=== PATIENT | female | born 1995 | race Caucasian/White ===

== ENCOUNTER 2019-10-02 09:49 | Outpatient (CLI) | payer OTHER, SELFPAY ==
[2015-11-09 03:06] VITALS: BMI 21.2
[2019-10-02] MEDS: Lactated Ringers 1,000 ML 999 ML IV (10:15)
[2019-10-02 10:25] VITALS: BMI 23.6
[2019-10-02] MEDS: Ondansetron 4 MG/2 ML Vial IM (10:39)
[2019-10-02 11:21] LABS: Albumin, Serum 3.6 g/dL (3.2-5.0); BUN 8 mg/dL (7-18); BUN/Creat Ratio 11.9 RATIO (10-20); Creatinine, Serum 0.68 mg/dL (0.55-1.02); EST Glomerular Filtration Rate 113 mL/min (>60); Est Glom Filt Rate - Afr Amer 137 mL/min (>60); Globulin 3.4 g/dL (2.2-4.2); Glucose 85 mg/dL (74-106)
[2019-10-02 11:22] LABS: ALB/GLOB Ratio 1.1 RATIO (0.9-2.4); AST(SGOT) 17 U/L (15-37); Alanine Aminotransfer ALT/SGPT 18 U/L (13-56); Alkaline Phosphatase 61 U/L (45-117); Anion Gap 6 (5-15); Calcium,Total 8.7 mg/dL (8.5-10.1); Chloride 107 mmol/L (98-107); Potassium 3.8 mmol/L (3.5-5.1); Sodium Level 138 mmol/L (136-145)
--- NOTE | 2019-10-02 11:47 | OB.TRI.PN ---
Progress Notes Date of Service: 10/02/19 Progress Note: 23 year old female presents to triage for nausea and vomiting. Nausea started 1.5 weeks ago. Yesterday had emesis x 6 and today x3. Has been unable to keep fluids or food down for 24 hrs. Tried zofran last week for nausea but was nervous to take it and did not in the last three days when nausea peaked. She is approximately 8 wks by LMP but earlier gestational age and more likely 6-7 based on early visit in office. Has dating US in 2 weeks. Denies any vaginal bleeding or pelvic pain. Denies any headache, chest pain, shortness of breath, or other concerns. O: Laboratory Last Values Sodium 138 mmol/L (136-145) 10/02/19 10:58 Potassium 3.8 mmol/L (3.5-5.1) 10/02/19 10:58 Chloride 107 mmol/L (98-107) 10/02/19 10:58 Carbon Dioxide 25.0 mmol/L (21.0-32.0) 10/02/19 10:58 Anion Gap 6 (5-15) 10/02/19 10:58 BUN 8 mg/dL (7-18) 10/02/19 10:58 Creatinine 0.68 mg/dL (0.55-1.02) 10/02/19 10:58 Estim Creat Clear Calc Cancelled 10/02/19 10:15 Est GFR (MDRD) Af Amer 137 mL/min (>60) 10/02/19 10:58 Est GFR (MDRD) Non-Af 113 mL/min (>60) 10/02/19 10:58 BUN/Creatinine Ratio 11.9 RATIO (10-20) 10/02/19 10:58 Glucose 85 mg/dL (74-106) 10/02/19 10:58 Calcium 8.7 mg/dL (8.5-10.1) 10/02/19 10:58 Total Bilirubin 0.90 mg/dL (0.20-1.00) 10/02/19 10:58 AST 17 U/L (15-37) 10/02/19 10:58 ALT 18 U/L (13-56) 10/02/19 10:58 Alkaline Phosphatase 61 U/L (45-117) 10/02/19 10:58 Total Protein 7.0 g/dL (6.4-8.2) 10/02/19 10:58 Albumin 3.6 g/dL (3.2-5.0) 10/02/19 10:58 Globulin 3.4 g/dL (2.2-4.2) 10/02/19 10:58 Albumin/Globulin Ratio 1.1 RATIO (0.9-2.4) 10/02/19 10:58 Gen: Alert and oriented Heart: RRR, no murmur Lungs: CTA bilaterally Abd: soft and non tender A: Nausea and vomiting in P: 1) 1 Liter LR IV 2) CMP, labs normal 3) 4mg IV zofran. Has PO zofran at home. reviewed risks, benefits, and how to take. Questions answered. Requesting Diclegis, will send Rx but reviewed how to take Vitamin B 6 and Unisom if unable to get coverage. 4) Reviewed BRATY diet, increased protein, and snacks every 2-3 hours 5) Follow up in office as scheduled and reviewed when to call. Laboratory Studies: Laboratory Tests 10/02/19 10/02/19 Range/Units 10:58 10:15 Sodium 138 Cancelled Potassium 3.8 Cancelled Chloride 107 Cancelled Carbon Dioxide 25.0 Cancelled Anion Gap 6 Cancelled BUN 8 Cancelled Creatinine 0.68 Cancelled Estim Creat Clear Calc Cancelled Est GFR (MDRD) Af Amer 137 Cancelled Est GFR (MDRD) Non-Af 113 Cancelled BUN/Creatinine Ratio 11.9 Cancelled Glucose 85 Cancelled Calcium 8.7 Cancelled Total Bilirubin 0.90 Cancelled AST 17 Cancelled ALT 18 Cancelled Alkaline Phosphatase 61 Cancelled Total Protein 7.0 Cancelled Albumin 3.6 Cancelled Globulin 3.4 Cancelled Albumin/Globulin Ratio 1.1 Cancelled
[2019-10-02 11:54] VITALS: BP 102/59; PULSE 70
== END 2019-10-02 12:15 | disposition home or self-care (01) ==
LOC: WPOUT 09:57 → OBT 09:58
PROVIDERS: PCP Student in an Organized Health Care Education/Training Program; Referring Provider Advanced Practice Midwife; Visit Provider Advanced Practice Midwife
DX: O26.891 Other specified pregnancy related conditions, first trimester (principal); R11.2 Nausea with vomiting, unspecified; Z3A.08 8 weeks gestation of pregnancy
CPT/HCPCS: 96360; 96361; 96372; 36415; 80053; 99218; J7120; G0378; J2405

== ENCOUNTER → 2021-10-15 | Outpatient (CLI) | payer OTHER, SELFPAY ==
[2021-10-14 14:14] LABS: Amphetamine Urine VISTA NEGATIVE (<1000 ng/mL); Barbiturate Urine VISTA NEGATIVE (< 200 ng/mL); Benzodiazepine Urine VISTA NEGATIVE (< 200 ng/mL); Cocaine Urine VISTA NEGATIVE (< 300 ng/mL); Ecstacy Urine VISTA NEGATIVE (< 500 ng/mL); Methadone Urine VISTA NEGATIVE (< 300 ng/mL); PCP Urine VISTA NEGATIVE (< 25 ng/mL); THC Urine VISTA NEGATIVE (< 50 ng/mL); Vista UDS pH Range 5
[2021-10-18 01:07] LABS: Chlamydia By Nucleic Acid AMP Negative (Negative)
[2021-10-18 13:27] LABS: Gonococcus By Nucleic Acid AMP Negative (Negative)
== END | disposition home or self-care (01) ==
PROVIDERS: Visit Provider Obstetrics & Gynecology
DX: Z34.80 Encounter for supervision of other normal pregnancy, unspecified trimester (principal)
CPT/HCPCS: 80307; 87086; 87088; 87491; 87591

== ENCOUNTER → 2021-10-19 | Outpatient (CLI) | payer OTHER, SELFPAY ==
[2021-10-19 12:03] LABS: Absolute Lymphocyte Count 1.32 X10^3/uL (0.83-4.51); Absolute Neutrophil Count 4.9 X10^3/uL (2.0-7.7); Basophil# 0.03 X10^3/uL; Basophil% 0.4 % (0-1); Eosinophil# 0.08 X10^3/uL; Eosinophils% 1.2 % (0-5); Hematocrit 39.7 % (37-47); Hemoglobin 13.7 g/dL (12.0-15.0); Lymphocyte # 1.32 X10^3/ul (0.83-4.51); Lymphocyte % 19.4 % (19-41); Mean Corp Hgb Conc 34.5 g/dL (32-36); Mean Corpuscular Hgb 31.6 pg (27.0-32.0); Mean Corpuscular Volume 91.5 fL (81-99); Mean Platelet Vol. 9.2 fl (6.2-12.0); Monocyte# 0.41 X10^3/uL; NRBC Flagged by Analyzer 0 % (0-5); Neutrophil # 4.93 X10^3/uL (2.7-7.7); Neutrophil % 72.6 % (47-70); Platelet Count 265 K/mm3 (150-450); RBC Distribution Width CV 12.8 % (11.6-14.6); RBC Distribution Width SD 42.5 fl (35.1-43.9); Red Blood Count 4.34 M/mm3 (4.2-5.4); White Blood Count 6.8 K/mm3 (4.4-11.0)
[2021-10-19 13:14] LABS: HIV - WCH Non-Reactive (Nonreactive); Hepatitis B Surface Antigen Non-Reactive (Nonreactive); Hepatitis C Antibody Non-Reactive (Nonreactive); Rubella IgG Reactive (Nonreactive); Syphilis Antibodies Non-reactive
== END | disposition home or self-care (01) ==
PROVIDERS: Referring Provider Obstetrics & Gynecology; Visit Provider Obstetrics & Gynecology
DX: Z34.80 Encounter for supervision of other normal pregnancy, unspecified trimester (principal)
CPT/HCPCS: 36415; 85025; 86703; 86762; 86780; 86803; 86850; 86900; 86901; 87340

== ENCOUNTER → 2021-12-14 | Outpatient (CLI) | payer OTHER, SELFPAY ==
[2022-02-03 10:44] LABS: NATERA MAILED SPECIMEN
== END | disposition home or self-care (01) ==
DX: O35.1XX0 Maternal care for (suspected) chromosomal abnormality in fetus, not applicable or unspecified (principal)
CPT/HCPCS: 36415

== ENCOUNTER → 2022-01-29 | Outpatient (CLI) | payer OTHER, SELFPAY ==
[2022-01-29 09:35] LABS: Absolute Neutrophil Count 4.4 X10^3/uL (2.0-7.7); Basophil# 0.02 X10^3/uL; Basophil% 0.3 % (0-1); Eosinophil# 0.06 X10^3/uL; Glucose Challenge Gest 1H 50g 133 mg/dL (70-140); Hematocrit 34.1 % (37-47); Hemoglobin 11.4 g/dL (12.0-15.0); Lymphocyte % 16.9 % (19-41); Mean Corp Hgb Conc 33.4 g/dL (32-36); Mean Corpuscular Hgb 33.3 pg (27.0-32.0); Mean Corpuscular Volume 99.7 fL (81-99); Mean Platelet Vol. 9.2 fl (6.2-12.0); Monocyte# 0.39 X10^3/uL; Monocyte% 6.6 % (0-10); NRBC Flagged by Analyzer 0 % (0-5); Neutrophil % 74.7 % (47-70); Platelet Count 189 K/mm3 (150-450); RBC Distribution Width SD 50.5 fl (35.1-43.9); Red Blood Count 3.42 M/mm3 (4.2-5.4); White Blood Count 5.9 K/mm3 (4.4-11.0)
== END | disposition home or self-care (01) ==
LOC: LAB 08:44
PROVIDERS: Referring Provider Obstetrics & Gynecology; Visit Provider Obstetrics & Gynecology
DX: Z13.1 Encounter for screening for diabetes mellitus (principal)
CPT/HCPCS: 36415; 82950; 85025

== ENCOUNTER → 2022-02-10 | Outpatient (CLI) | payer OTHER, SELFPAY ==
--- NOTE | 2022-02-10 12:47 | US_ITS ---
STUDY: SECOND AND THIRD TRIMESTER OBSTETRICAL ULTRASOUND - LIMITED REASON FOR EXAM: Female, 26 years old . growth. LMP: 07/21/2021. PRIOR ULTRASOUND: None. TECHNIQUE: Transabdominal TECHNICAL QUALITY: Adequate. FINDINGS: There is a single intrauterine fetus. The fetus is in a breech presentation. There is demonstrated cardiac activity with a heart rate of 147 bpm. There is a normal amniotic fluid volume. The largest amniotic fluid pocket measures 8.34 cm. The amniotic fluid index (MARIA LUISA) is 20.6 cm. The placenta is anterior in location and is not low lying. There are Grade 0 placental changes. The cervix measures 3.92 cm in length. BIOMETRY: BPD: 7.38 cm: 29 weeks, 4 days HC: 28 cm: 30 weeks, 1 days AC: 25.35 cm: 29 weeks, 4 days FL: 5.45 cm: 28 weeks, 6 days Age by LMP: 29 weeks, 1 days. AGUS by LMP: 04/27/2022. age by current US: 29 weeks, 5 days. AGUS by current US: 04/23/2022. Estimated weight: 1385 grams, +/- 208 grams, 46 percentile. US/OB Limited With Biometrics IMPRESSION: Single live intrauterine gestation with a mean gestational age of 29 weeks and 5 days. Electronically Signed: Cory Whitehead MD at 14:45 EDT ,
== END | disposition home or self-care (01) ==
LOC: US 12:45
PROVIDERS: Referring Provider Obstetrics & Gynecology; Visit Provider Obstetrics & Gynecology
DX: O35.1XX0 Maternal care for (suspected) chromosomal abnormality in fetus, not applicable or unspecified (principal); Z3A.29 29 weeks gestation of pregnancy
CPT/HCPCS: 76816

== ENCOUNTER → 2022-04-01 | Outpatient (CLI) | payer OTHER, SELFPAY | END | disposition home or self-care (01) | PROVIDERS: Visit Provider Obstetrics & Gynecology | DX: Z34.90 Encounter for supervision of normal pregnancy, unspecified, unspecified trimester (principal) | CPT/HCPCS: 87081 ==

== ENCOUNTER 2022-05-02 10:30 | Outpatient (CLI) | payer OTHER, SELFPAY ==
[2022-05-02 10:54] VITALS: BMI 30.1
[2022-05-02 10:58] VITALS: TEMP 36.7
[2022-05-02 10:59] VITALS: BP 112/70; PULSE 98
[2022-05-02 11:00] VITALS: PULSE 94; O2SAT 97
[2022-05-02 11:23] LABS: ROM Internal Control Test YES-OK TO RESULT pt. (Internal QC); ROM Patient Test Negative (Negative)
--- NOTE | 2022-05-02 21:10 | OB.TRI.HP_ITS ---
HPI - General HPI Narrative VÍCTOR MELGAR, is a 26 F G3, P1 at 40+5 presenting to labor and delivery with contractions and questionable leaking of fluid. Maternal Data Information AGUS Calculator Estimated Delivery Date Method Current WG Current Estimate 04/27/22 LMP (Certain) 40w 5d PFSH PFSH Medical History Family history of breast cancer in mother Family history of ovarian carcinoma Home Medications vit no.95-ferrous fumarate 28 mg-folic acid 800 mcg tablet 1 ea PO DAILY 10/02/19 [History Last Taken 05/01/22 21:00] doxylamine succinate 25 mg tablet (Unisom (doxylamine)) 25 mg PO QHS PRN Sleep 03/18/22 [History Last Taken 05/01/22 21:00] Allergy/AdvReac Type Severity Reaction Status Date / Time No Known Allergies Allergy Verified 05/02/22 10:56 Family History Mother Breast cancer age 29 and again age 35. Neg BRCA testing Grandmother Cancer maternal: ovarian Sister Endometriosis PCOS (polycystic ovarian syndrome) Social History adopted: No household members: spouse and children number of children: 1 current occupational status: unemployed current occupation: [employer] pets and animals: Yes pets and animals: dog(s) Smoking Status: Never smoker alcohol intake: current details: social substance use type: does not use do you feel safe at home: Yes additional social history: Spouse Chapito History 3 Elective abortions Hx Para 1 Spontaneous abortions 1 Hx # Term Pregnancies Ectopic pregnancies Hx # Pregnancies Multiple births # of living children 1 Past Pregnancies Del. Date Name GA/Weeks Outcome Route Bth Weight Infant Gen Labor Lgth Anesthesia Del Locatn Provider FOB Unknown 05/18/20 [facility] live - full term 7# 2oz Fe male 26 hr epidural [place] [facility] Unknown SAB 07/2021 Delivery Date: Last Updated by: Stephani Garcia NP, AIR QUALITY MANAGER-C minor TIA at 36 wk. No anticoagulants. Symptoms resolved. Visit Details Expected Delivery Route/Plan Labor Preferences labor support person: chapito labor intervention preferences: pain management options preferred: epidural cut cord/dad catch: yes : yes PP control planned: [] discussed possible routes of delivery and associated risks: [] special requests: [] Plans Covid status: discussed Flu vaccine: discussed Tdap vaccine: given Rhogam: na LARC form signed: declined movement and labor precautions reviewed. Problem list reviewed and updated with the most current plan of care details and appropriate orders placed. Relevant counseling for the gestational age provided. Continue routine care and follow up unless otherwise noted in visit notes/problem list details OB Flowsheet Initial Weight: 130 lb Date -?-?-?-?-?-?-?-?-?-?-?-?- EGA Weight BP Urine Prot -?-?-?-?-?-?-?-?-?-?-?-?- Glucose FHR FuHt Pres Dilation -?-?-?-?-?-?-?-?-?-?-?-?- Effaced St Visit Note 10/14/21 -?-?-?-?-?-?-?-?-?-?-?-?- 12w 1d 130 lb 4 oz (+4 oz) 100/80 -?-?-?-?-?-?-?-?-?-?-?-?- 160 -?-?-?-?-?-?-?-?-?-?-?-?- JV- CRL consiste nt with LMP 11/12/21 -?-?-?-?-?-?-?-?-?-?-?-?- 16w 2d 133 lb (+3 lb) 114/64 Negative -?-?-?-?-?-?-?-?-?-?-?-?- Negative 150 -?-?-?-?-?-?-?-?-?-?-?-?- SM- no vb crampi ng still having nausea, hvaing upper eyelid rash 12/07/21 -?-?-?-?-?-?-?-?-?-?-?-?- 19w 6d 137 lb 8 oz (+7 lb 8 oz) 102/68 -?-?-?-?-?-?-?-?-?-?-?-?- 150 -?-?-?-?-?-?-?-?-?-?-?-?- Sm- no vb lof go od fm no regular ctx 01/04/22 -?-?-?-?-?-?-?-?-?-?-?-?- 23w 6d 143 lb (+13 lb) 122/68 -?-?-?-?-?-?-?-?-?-?-?-?- 150 -?-?-?-?-?-?-?-?-?-?-?-?- SM- no vb crampi ng doing well 02/04/22 -?-?-?-?-?-?-?-?-?-?-?-?- 28w 2d 150 lb 6 oz (+20 lb 6 oz) 110/60 -?-?-?-?-?-?-?-?-?-?-?-?- 150 30 -?-?-?-?-?-?-?-?-?-?-?-?- JV- due for grow th scan but can not afford mfm. will order with [facility]. pt is taking baby asa for possible h/o TIA, however mfm believes this was just a complex migraine. She states that the follow up thrombophilia panel will cost her $4000 so she will not be doing this. JV- due for growth scan but can not afford mfm. will order with [facility]. pt is taking baby asa for possible h/o TIA, however mfm believes this was just a complex migraine. She states that the follow up thrombophilia panel will cost her $4000 so she will not be doing this. Glucola was normal. lar signed today. 02/18/22 -?-?-?-?-?-?-?-?-?-?-?-?- 30w 2d 153 lb (+23 lb) 94/62 Negative -?-?-?-?-?-?-?-?-?-?-?-?- Negative 150 31 -?-?-?-?-?-?-?-?-?-?-?-?- SM- no vb lof go od fm no regular ctx 03/02/22 -?-?-?-?-?-?-?-?-?-?-?-?- 32w 0d 165 lb 6 oz (+35 lb 6 oz) 118/75 -?-?-?-?-?-?--?-?-?-?-?-?- 154 33 -?-?-?-?-?-?-?-?-?-?-?-?- JV- c/o vaginal varicosities. consider rpt maria luisa after 34 weeks due to measurement of 20 on last scan 03/18/22 -?-?-?-?-?-?-?-?-?-?-?-?- 34w 2d 163 lb (+33 lb) 118/69 Negative -?-?-?-?-?-?-?-?-?-?-?-?- Negative 145 35 -?-?-?-?--?-?-?-?-?-?-?-?- JV- fundal heigh t appropriate. no need for MARIA LUISA today. 04/01/22 -?-?-?-?-?-?-?-?-?-?-?-?- 36w 2d 165 lb (+35 lb) 112/78 -?-?-?-?-?-?-?-?-?-?-?-?- 135 36 Cephalic 1 -?-?-?-?-?-?-?-?-?-?-?-?- SM- no vb lof go od fm no regualr ctx 04/08/22 -?-?-?-?-?-?-?-?-?-?-?-?- 37w 2d 169 lb 2 oz (+39 lb 2 oz) 113/69 -?-?-?-?-?-?-?-?-?-?-?-?- 141 37 Cephalic 1 -?-?-?-?-?-?-?-?-?-?-?-?- 50 -3 JV- no lof , vaginal bleeding or dec fm. labor precautions discussed. 04/15/22 -?-?-?-?-?-?-?-?-?-?-?-?- 38w 2d 167 lb (+37 lb) 110/75 Negative -?-?-?-?-?-?-?-?-?-?-?-?- Negative 145 39 Cephalic 1 .5 -?-?-?-?-?-?-?-?-?-?-?-?- 60 -2 Sm- no vb lof good fm n oregular ctx 04/22/22 -?-?-?-?-?-?-?-?-?-?-?-?- 39w 2d 169 lb 6 oz (+39 lb 6 oz) 121/69 Negative -?-?-?-?-?-?-?-?-?-?-?-?- Negative 140 37 Cephalic 2 -?-?-?-?-?-?-?-?-?-?-?-?- 60 -2 JV- no lof , vaginal bleeding, or dec fm. labor precautions discussed. NST FHR Rate Baby A Baseline: 140 Variability:: Moderate Accelerations:: 15 x 15 Decelerations:: None NST Reactive:: Yes FHR Category:: Category I Uterine Activity:: q9-15 minutes Assessment & Plan (1) Supervision of high-risk : COMMENT: PRR AGUS:04/27/22 boy PC:Kae. Spouse:Chapito (2) : QUALIFIERS: Weeks of gestation: 40 weeks Qualified Code(s): Z3A.40 - 40 weeks gestation of COMMENT: GBS Negative, low risk NIPT, declined afp and carrier screen. A natomy US showed thickened NF 7.44mm. F/u growth US every 4-6 weeks with MFM 01/18/22, 02/10/22 nl growth US PLAN: Plan Patient presents for triage evaluation secondary to ctx and LOF FHT: + Moderate variability reactive no decelerations category I tracing [place]: irreg Contractions Assessment and plan: Reactive NST, no change in cervical exam. reassuring maternal and status patient discharged to home to follow-up for IOL scheduled. See problem list details for additional plan information. Charges/Coding Multi Select Codes Urinary/Genital Urinary/Genital CPT Codes: 75323-25 non-stress test Interp
--- NOTE | 2022-05-02 21:10 | OB.TRI.NOTE ---
HPI - General HPI Narrative VÍCTOR MELGAR, is a 26 F G3, P1 at 40+5 presenting to labor and delivery with contractions and questionable leaking of fluid. Maternal Data Information AGUS Calculator Estimated Delivery Date Method Current WG Current Estimate 04/27/22 LMP (Certain) 40w 5d PFSH PFSH Medical History Family history of breast cancer in mother Family history of ovarian carcinoma Home Medications vit no.95-ferrous fumarate 28 mg-folic acid 800 mcg tablet 1 ea PO DAILY 10/02/19 [History Last Taken 05/01/22 21:00] doxylamine succinate 25 mg tablet (Unisom (doxylamine)) 25 mg PO QHS PRN Sleep 03/18/22 [History Last Taken 05/01/22 21:00] Allergy/AdvReac Type Severity Reaction Status Date / Time No Known Allergies Allergy Verified 05/02/22 10:56 Family History Mother Breast cancer age 29 and again age 35. Neg BRCA testing Grandmother Cancer maternal: ovarian Sister Endometriosis PCOS (polycystic ovarian syndrome) Social History adopted: No household members: spouse and children number of children: 1 current occupational status: unemployed current occupation: [employer] [address] [employer] [employer] pets and animals: Yes pets and animals: dog(s) Smoking Status: Never smoker alcohol intake: current details: social substance use type: does not use do you feel safe at home: Yes additional social history: Spouse Chapito History 3 Elective abortions Hx Para 1 Spontaneous abortions 1 Hx # Term Pregnancies Ectopic pregnancies Hx # Pregnancies Multiple births # of living children 1 Past Pregnancies Del. 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 No anticoagulants. Symptoms resolved. Visit Details Expected Delivery Route/Plan Labor Preferences labor support person: chapito labor intervention preferences: pain management options preferred: epidural cut cord/dad catch: yes : yes PP control planned: [] discussed possible routes of delivery and associated risks: [] special requests: [] Plans Covid status: discussed Flu vaccine: discussed Tdap vaccine: given Rhogam: na LARC form signed: declined movement and labor precautions reviewed. Problem list reviewed and updated with the most current plan of care details and appropriate orders placed. Relevant counseling for the gestational age provided. Continue routine care and follow up unless otherwise noted in visit notes/problem list details OB Flowsheet Initial Weight: 130 lb Date <del>?</del> EGA Weight BP Urine Prot <del>?</del> Glucose FHR FuHt Pres Dilation <del>?</del> Effaced St Visit Note 10/14/21 <del>?</del> 12w 1d 130 lb 4 oz (+4 oz) 100/80 <del>?</del> 160 <del>?</del> JV- CRL consistent with LMP 11/12/21 <del>?</del> 16w 2d 133 lb (+3 lb) 114/64 Negative <del>?</del> Negative 150 <del>?</del> SM- no vb cramping still having nausea, hvaing upper eyelid rash 12/07/21 <del>?</del> 19w 6d 137 lb 8 oz (+7 lb 8 oz) 102/68 <del>?</del> 150 <del>?</del> Sm- no vb lof good fm no regular ctx 01/04/22 <del>?</del> 23w 6d 143 lb (+13 lb) 122/68 <del>?</del> 150 <del>?</del> SM- no vb cramping doing well 02/04/22 <del>?</del> 28w 2d 150 lb 6 oz (+20 lb 6 oz) 110/60 <del>?</del> 150 30 <del>?</del> JV- due for growth scan but can not afford mfm. will order with [facility]. pt is taking baby asa for possible h/o TIA, however mfm believes this was just a complex migraine. She states that the follow up thrombophilia panel will cost her $4000 so she will not be doing this. JV- due for growth scan but can not afford mfm. will order with [facility]. pt is taking baby asa for possible h/o TIA, however mfm believes this was just a complex migraine. She states that the follow up thrombophilia panel will cost her $4000 so she will not be doing this. Glucola was normal. larc signed today. 02/18/22 <del>?</del> 30w 2d 153 lb (+23 lb) 94/62 Negative <del>?</del> Negative 150 31 <del>?</del> SM- no vb lof good fm no regular ctx 03/02/22 <del>?</del> 32w 0d 165 lb 6 oz (+35 lb 6 oz) 118/75 <del>?</del> 154 33 <del>?</del> JV- c/o vaginal varicosities. consider rpt maria luisa after 34 weeks due to measurement of 20 on last scan 03/18/22 <del>?</del> 34w 2d 163 lb (+33 lb) 118/69 Negative <del>?</del> Negative 145 35 <del>?</del> JV- fundal height appropriate. no need for MARIA LUISA today. 04/01/22 <del>?</del> 36w 2d 165 lb (+35 lb) 112/78 <del>?</del> 135 36 Cephalic 1 <del>?</del> SM- no vb lof good fm no regualr ctx 04/08/22 <del>?</del> 37w 2d 169 lb 2 oz (+39 lb 2 oz) 113/69 <del>?</del> 141 37 Cephalic 1 <del>?</del> 50 -3 JV- no lof, vaginal bleeding or dec fm. labor precautions discussed. 04/15/22 <del>?</del> 38w 2d 167 lb (+37 lb) 110/75 Negative <del>?</del> Negative 145 39 Cephalic 1.5 <del>?</del> 60 -2 Sm- no vb lof good fm n oregular ctx 04/22/22 <del>?</del> 39w 2d 169 lb 6 oz (+39 lb 6 oz) 121/69 Negative <del>?</del> Negative 140 37 Cephalic 2 <del>?</del> 60 -2 JV- no lof, vaginal bleeding, or dec fm. labor precautions discussed. NST FHR Rate Baby A Baseline: 140 Variability:: Moderate Accelerations:: 15 x 15 Decelerations:: None NST Reactive:: Yes FHR Category:: Category I Uterine Activity:: q9-15 minutes Assessment & Plan (1) Supervision of high-risk : COMMENT: PRR AGUS:04/27/22 boy PC:Kae. Spouse:Chapito (2) : QUALIFIERS: Weeks of gestation: 40 weeks Qualified Code(s): Z3A.40 - 40 weeks gestation of COMMENT: GBS Negative, low risk NIPT, declined afp and carrier screen. Anatomy US showed thickened NF 7.44mm. F/u growth US every 4-6 weeks with MFM 01/18/22, 02/10/22 nl growth US PLAN: Plan Patient presents for triage evaluation secondary to ctx and LOF FHT: + Moderate variability reactive no decelerations category I tracing Kenneth: irreg Contractions Assessment and plan: Reactive NST, no change in cervical exam. reassuring maternal and status patient discharged to home to follow-up for IOL scheduled. See problem list details for additional plan information. Charges/Coding Multi Select Codes Urinary/Genital Urinary/Genital CPT Codes: 83526-83 non-stress test Interp
== END 2022-05-02 11:39 | disposition home or self-care (01) ==
LOC: WPOUT 10:38 → WP 10:46
PROVIDERS: Referring Provider Registered Nurse; Visit Provider Registered Nurse
DX: O47.1 False labor at or after 37 completed weeks of gestation (principal); O48.0 Post-term pregnancy; Z3A.40 40 weeks gestation of pregnancy; O09.10 Supervision of pregnancy with history of ectopic pregnancy, unspecified trimester
CPT/HCPCS: 59025; 59050; 84112; 99218; G0378

== ENCOUNTER 2022-05-03 07:05 | Inpatient (IN) | payer OTHER, SELFPAY ==
[2022-05-03] VITALS (57 sets, daily range): BP systolic 89–130; BP diastolic 52–90; PULSE 72–107; TEMP 36–36.6; O2SAT 87–100; BMI 30.1
[2022-05-03] MEDS: Lactated Ringers 1,000 ML 50 ML IV (07:40)
[2022-05-03 08:00] LABS: Absolute Lymphocyte Count 1.18 X10^3/uL (0.83-4.51); Absolute Neutrophil Count 5.6 X10^3/uL (2.0-7.7); Basophil# 0.03 X10^3/uL; Basophil% 0.4 % (0-1); Eosinophil# 0.07 X10^3/uL; Hematocrit 38.3 % (37-47); Lymphocyte # 1.18 X10^3/ul (0.83-4.51); Lymphocyte % 16.2 % (19-41); Mean Corp Hgb Conc 33.9 g/dL (32-36); Mean Corpuscular Hgb 32.9 pg (27.0-32.0); Mean Platelet Vol. 10.6 fl (6.2-12.0); Monocyte# 0.43 X10^3/uL; Monocyte% 5.9 % (0-10); NRBC Flagged by Analyzer 0 % (0-5); Neutrophil # 5.56 X10^3/uL (2.7-7.7); Neutrophil % 76.2 % (47-70); Platelet Count 142 K/mm3 (150-450); RBC Distribution Width CV 12.9 % (11.6-14.6); RBC Distribution Width SD 45.6 fl (35.1-43.9); Red Blood Count 3.95 M/mm3 (4.2-5.4); White Blood Count 7.3 K/mm3 (4.4-11.0)
[2022-05-03] MEDS: Oxytocin 15 Units/NS 250ml 15 UNITS/250 ML IV.SOLN 2 UNITS IV (08:37)
--- NOTE | 2022-05-03 10:14 | HP.PCM.OB_ITS ---
HPI - General General Date of Admission: 05/03/22 HPI Narrative VÍCTOR MELGAR, is a 26 F who presents for IOL secondary to postdates. she has had irregular ctx no vb lof admits good fm. Maternal Data Information AGUS Calculator Estimated Delivery Date Method Current WG Current Estimate 04/27/22 LMP (Certain) 40w 6d PFSH PFSH Medical History (Updated 05/03/22 @ 10:[address] Ania Ibarra MD) Family history of breast cancer in mother Family history of ovarian carcinoma Labial varicosities Home Medications vit no.95-ferrous fumarate 28 mg-folic acid 800 mcg tablet 1 ea PO DAILY 10/02/19 [History Last Taken 05/02/22 21:00] doxylamine succinate 25 mg tablet (Unisom (doxylamine)) 25 mg PO QHS PRN Sleep 03/18/22 [History Last Taken 05/02/22 21:00] Allergy/AdvReac Type Severity Reaction Status Date / Time No Known Allergies Allergy Verified 05/02/22 10:56 Family History Mother Breast cancer age 29 and again age 35. Neg BRCA testing Grandmother Cancer maternal: ovarian Sister Endometriosis PCOS (polycystic ovarian syndrome) Surgical History (Updated 05/03/22 @ 08:59 by Elke Singh) History of oral surgery Social History adopted: No household members: spouse and children number of children: 1 current occupational status: unemployed current occupation: [employer] pets and animals: Yes pets and animals: dog(s) Smoking Status: Never smoker alcohol intake: current details: social substance use type: does not use do you feel safe at home: Yes additional social history: Spouse Chapito History 3 Elective abortions Hx Para 1 Spontaneous abortions 1 Hx # Term Pregnancies Ectopic pregnancies Hx # Pregnancies Multiple births # of living children 1 Past Pregnancies Del. Date Name GA/Weeks Outcome Route Bth Weight Gen Labor Lgth Anesthesia Del Locatn Provider FOB Unknown 05/18/20 [facility] live - full term 7# 2oz Fe male 26 hr epidural [place] [facility] Unknown SAB 07/2021 Delivery Date: Last Updated by: Stephani Garcia NP, [facility]-C minor TIA at 36 wk. No anticoagulants. Symptoms resolved. Visit Details Expected Delivery Route/Plan Labor Preferences labor support person: chapito labor intervention preferences: pain management options preferred: epidural cut cord/dad catch: yes : yes PP control planned: [] discussed possible routes of delivery and associated risks: [] special requests: [] Plans Covid status: discussed Flu vaccine: discussed Tdap vaccine: given Rhogam: na LARC form signed: declined movement and labor precautions reviewed. Problem list reviewed and updated with the most current plan of care details and appropriate orders placed. Relevant counseling for the gestational age provided. Continue routine care and follow up unless otherwise noted in visit notes/problem list details OB Flowsheet Initial Weight: 130 lb Date -?-?-?-?-?-?-?-?-?-?-?-?- EGA Weight BP Urine Prot -?-?-?-?-?-?-?-?-?-?-?-?- Glucose FHR FuHt Pres Dilation -?-?-?-?-?-?-?-?-?-?-?-?- Effaced St Visit Note 10/14/21 -?-?-?-?-?-?-?-?-?-?-?-?- 12w 1d 130 lb 4 oz (+4 oz) 100/80 -?-?-?-?-?-?-?-?-?-?-?-?- 160 -?-?-?-?-?-?-?-?-?-?-?-?- JV- CRL consiste nt with LMP 11/12/21 -?-?-?-?-?-?-?-?-?-?-?-?- 16w 2d 133 lb (+3 lb) 114/64 Negative -?-?-?-?-?-?-?-?-?-?-?-?- Negative 150 -?-?-?-?-?-?-?-?-?-?--?-?- SM- no vb crampi ng still having nausea, hvaing upper eyelid rash 12/07/21 -?-?-?-?-?-?-?-?-?-?-?-?- 19w 6d 137 lb 8 oz (+7 lb 8 oz) 102/68 -?-?-?-?-?-?-?-?-?-?-?-?- 150 -?-?-?-?-?-?-?-?-?-?-?-?- Sm- no vb lof go od fm no regular ctx 01/04/22 -?-?-?-?-?-?-?-?-?-?-?-?- 23w 6d 143 lb (+13 lb) 122/68 -?-?-?-?-?-?-?-?-?-?-?-?- 150 -?-?-?-?-?-?-?-?-?-?-?-?- SM- no vb crampi ng doing well 02/04/22 -?-?-?-?-?-?-?-?-?-?-?-?- 28w 2d 150 lb 6 oz (+20 lb 6 oz) 110/60 -?-?-?-?-?-?-?-?-?-?-?-?- 150 30 -?-?-?-?-?-?-?-?-?-?-?-?- JV- due for grow th scan but can not afford mfm. will order with [facility]. pt is taking baby asa for possible h/o TIA, however mfm believes this was just a complex migraine. She states that the follow up thrombophilia panel will cost her $4000 so she will not be doing this. JV- due for growth scan but can not afford mfm. will order with [facility]. pt is taking baby asa for possible h/o TIA, however mfm believes this was just a complex migraine. She states that the follow up thrombophilia panel will cost her $4000 so she will not be doing this. Glucola was normal. larc signed today. 02/18/22 -?-?-?-?-?-?-?-?-?-?-?-?- 30w 2d 153 lb (+23 lb) 94/62 Negative -?-?-?-?-?-?-?-?-?-?-?-?- Negative 150 31 -?-?-?-?-?-?-?-?-?-?-?-?- SM- no vb lof go od fm no regular ctx 03/02/22 -?-?-?-?-?-?-?-?-?-?-?-?- 32w 0d 165 lb 6 oz (+35 lb 6 oz) 118/75 -?-?-?-?-?-?-?-?-?-?-?-?- 154 33 -?-?-?-?-?-?-?-?-?-?-?-?- JV- c/o vaginal varicosities. consider rpt maria luisa after 34 weeks due to measurement of 20 on last scan 03/18/22 -?-?-?-?-?-?-?-?-?-?-?-?- 34w 2d 163 lb (+33 lb) 118/69 Negative -?-?-?-?-?-?-?-?-?-?-?-?- Negative 145 35 -?-?-?-?-?-?-?-?-?-?-?-?- JV- fundal heigh t appropriate. no need for MARIA LUISA today. 04/01/22 -?-?-?-?-?-?-?-?-?-?-?-?- 36w 2d 165 lb (+35 lb) 112/78 -?-?-?-?-?-?-?-?-?-?-?-?- 135 36 Cephalic 1 -?-?-?-?-?-?-?-?-?-?-?-?- SM- no vb lof go od fm no regualr ctx 04/08/22 -?-?-?-?-?-?-?-?-?-?-?-?- 37w 2d 169 lb 2 oz (+39 lb 2 oz) 113/69 -?-?-?-?-?-?-?-?-?-?-?-?- 141 37 Cephalic 1 -?-?-?-?-?-?-?-?-?-?-?-?- 50 -3 JV- no lof , vaginal bleeding or dec fm. labor precautions discussed. 04/15/22 -?-?-?-?-?-?-?-?-?-?-?-?- 38w 2d 167 lb (+37 lb) 110/75 Negative -?-?-?-?-?-?-?-?-?-?-?-?- Negative 145 39 Cephalic 1 .5 -?-?-?-?-?-?-?-?-?-?-?-?- 60 -2 Sm- no vb lof good fm n oregular ctx 04/22/22 -?-?-?-?-?-?-?-?-?-?-?-?- 39w 2d 169 lb 6 oz (+39 lb 6 oz) 121/69 Negative -?-?-?-?-?-?-?-?-?-?-?-?- Negative 140 37 Cephalic 2 -?-?-?-?-?-?-?-?-?-?-?-?- 60 -2 JV- no lof , vaginal bleeding, or dec fm. labor precautions discussed. 05/03/22 -?-?-?-?-?-?-?-?-?--?-?-?- 40w 6d 170 lb (+40 lb) 113/75 100/63 111/73 -?-?-?-?-?-?-?-?-?-?-?-?- -?-?-?-?-?-?-?-?-?-?-?-?- NST FHR Rate Baby A Baseline: 130 Variability:: Moderate Accelerations:: 15 x 15 Decelerations:: None NST Reactive:: Yes FHR Category:: Category I Uterine Activity:: irregular ROS Constitutional Constitutional: Reports systems reviewed and no addt'l complaints, except as documented Eyes Eyes: Denies change in vision ENT HEENT: Reports systems reviewed and no addt'l complaints, except as documented; Denies headache(s) Cardiovascular Cardiovascular: Reports systems reviewed and no addt'l complaints, except as documented; Denies chest pain or dyspnea Respiratory/Chest Respiratory/Chest: Reports systems reviewed and no addt'l complaints, except as documented Gastrointestinal Gastrointestinal: Reports systems reviewed and no addt'l complaints, except as documented; Denies abdominal pain Genitourinary Genitourinary: Reports systems reviewed and no addt'l complaints, except as documented, contractions Details: present (irregular) and movement Details: present; Denies dysuria or genital lesions Musculoskeletal Musculoskeletal: Reports systems reviewed and no addt'l complaints, except as documented Neurologic Neurologic: Reports systems reviewed and no addt'l complaints, except as documented Endocrine Endocrinology: Reports systems reviewed and no addt'l complaints, except as documented Vital Signs Vital Signs Vital Signs: 05/03/22 07:46 05/03/22 07:46 05/03/22 07:46 Temperature Temperature Source Pulse Rate 107 H Blood Pressure 113/75 BP Systolic 113 BP Diastolic 75 Pulse Ox 97 05/03/22 07:46 05/03/22 07:46 05/03/22 09:01 Temperature 97.3 F L Temperature Source Temporal Pulse Rate Blood Pressure 100/63 BP Systolic 100 BP Diastolic 63 Pulse Ox 05/03/22 09:01 05/03/22 09:00 05/03/22 09:00 Temperature 96.8 F L Temperature Source Temporal Pulse Rate 90 Blood Pressure BP Systolic BP Diastolic Pulse Ox 05/03/22 07:46 05/03/22 07:46 05/03/22 09:59 Temperature 97.3 F L Temperature Source Temporal Temporal Pulse Rate Blood Pressure BP Systolic BP Diastolic Pulse Ox 05/03/22 09:59 05/03/22 09:59 05/03/22 09:59 Temperature Temperature Source Pulse Rate 83 Blood Pressure 111/73 BP Systolic 111 BP Diastolic 73 Pulse Ox 99 05/03/22 09:59 Temperature 97.4 F L Temperature Source Pulse Rate Blood Pressure BP Systolic BP Diastolic Pulse Ox Weight Weight: 170 lb Body Mass Index (BMI) 30.1 Physical Exam Const alert, oriented x3, no apparent distress and healthy appearing HEENT normocephalic and moist oral mucous membranes Head and Scalp: atraumatic Neck full ROM, no lymphadenopathy, supple and thyroid normal General: trachea midline Lymph Lymphatic: no lymphadenopathy noted Chest inspection of chest normal Resp normal respiratory effort Cardio regular rate GI normal to inspection, nondistended, normoactive bowel sounds, soft to palpation and non-tender Inspection: gravid external exam normal Manual OB Exam: estimated gestational size appropriate, presentation cephalic, dilated, effaced and station Extremity normal to inspection General Extremity: Negative for edema Skin no rashes or lesions noted Neuro no focal motor deficits and deep tendon reflexes 2+ bilaterally Motor Exam: strength 5/5 throughout and clonus absent Psych mental status grossly normal Labs Labs Labs: Blood Type A POSITIVE Antibody Screen NEGATIVE Hct 38.3 % (37-47) Hgb 13.0 g/dL (12.0-15.0) Obstetrics US Syphilis Total Ab Non-reactive Rubella IgG Antibody Reactive (Nonreactive) Hep Bs Antigen Non-Reactive (Nonreactive) Chlamydia DNA (MANDI) Negative (Negative) Neisseria gonorrhoeae DNA (MANDI) Negative (Negative) HIV 1&2 Antibody Non-Reactive (Nonreactive) Glucose 1 Hr 50 gm 133 mg/dL (70-140) Assessment & Plan (1) Decreased movements in third trimester: COMMENT: nst today, if persistent recommend IOL (2) Nuchal fold thickening determined by ultrasound: COMMENT: told by M didn't need echo, nl anatomy. (3) Supervision of high-risk : COMMENT: PRR AGUS:04/27/22 boy PC:Kae. Spouse:Chapito (4) : QUALIFIERS: Weeks of gestation: 40 weeks Qualified Code(s): Z3A.40 - 40 weeks gestation of COMMENT: GBS Negative, low risk NIPT, declined afp and carrier screen. Anatomy US showed thickened NF 7.44mm. F/u growth US every 4-6 weeks with MFM 01/18/22, 02/10/22 nl growth US (5) Encounter for induction of labor: PLAN: Plan Patient presents IOL, plan management for with fb pitocin/AROM. Pain management: plans epidural. GBS negative. Management of any complications: none I have reviewed the [facility] and made any clinically relevant updates.
[2022-05-03] MEDS: LACTATED RINGERS 500 ML 999 ML IV ×3 (11:03→18:02)
[2022-05-03] MEDS: fentaNYL-bupivacaine (epidural) 100 ML BAG EPIDURAL ×3 (12:30→22:38)
--- NOTE | 2022-05-03 13:16 | PN_ITS ---
Progress Note pt is comfortable with epidural current tracing: FHT: 120's-130's Moderate variability reactive no decelerations category I tracing [place]: q 2-3 min Contractions cx: 3/70/-1, membranes ruptured and scant clear fluid returned. IUPC placed to determine uterine contraction strength. A/P: post dates IOL. continue pitocin. membranes ruptured with clear fluid return
[2022-05-03] MEDS: Lactated Ringers 1,000 ML 200 ML IV ×2 (16:25→22:38)
[2022-05-03] MEDS: Ondansetron 4 MG/2 ML Vial IV (20:48)
[2022-05-04] VITALS (36 sets, daily range): BP systolic 102–117; BP diastolic 60–84; PULSE 69–94; RESP 15–16; TEMP 36.1–36.4; O2SAT 97–99
[2022-05-04] MEDS: Methylergonovine 0.2 MG/ML Ampul IM (01:23)
--- NOTE | 2022-05-04 01:35 | OP.PCM_ITS ---
Assessment & Plan (1) Decreased movements in third trimester: COMMENT: nst today, if persistent recommend IOL (2) Nuchal fold thickening determined by ultrasound: COMMENT: told by MFM didn't need echo, nl anatomy. (3) Supervision of high-risk : COMMENT: PRR AGUS:04/27/22 boy PC:Kae. Spouse:Hero (4) : QUALIFIERS: Weeks of gestation: 40 weeks Qualified Code(s): Z3A.40 - 40 weeks gestation of COMMENT: GBS Negative, low risk NIPT, declined afp and carrier screen. Anatomy US showed thickened NF 7.44mm. F/u growth US every 4-6 weeks with MFM 01/18/22, 02/10/22 nl growth US (5) Encounter for induction of labor: (6) Vaginal delivery: COMMENT: SM 41 IOL postdates boy Maternal Data Information AGUS Calculator Estimated Delivery Date Method Current WG Current Estimate 04/27/22 LMP (Certain) 41w 0d Vaginal Delivery Operative Information Date of Procedure: 05/04/22 Pre-Operative Diagnosis: iol postdates Post-Operative Diagnosis: same Surgery / Procedure Performed: Spontaneous Vaginal Delivery Type of Anesthesia: Epidural Special Medications: none Estimated Blood Loss: 300 Fluids Replaced: crystalloid Findings Description of Procedure: Patient began pushing and delivered the head in the RAVEN presentation. The head was delivered atraumatically . The anterior and posterior shoulders delivered without complication followed by the rest of the and the infant was placed on the maternal abdomen. Delayed cord clamping was employed for approximately 60 seconds. Cord was clamped and cut and gentle traction was applied to the cord and the placenta delivered spontaneously immediately following it was noted to be intact with three-vessel cord. The perineum and vagina were inspected and noted to have no laceration. EBL was 300. Patient and tolerated delivery well. Presentation: RAVEN Amniotic Membrane Rupture Type: Spontaneous Amniotic Fluid Description: Clear Placental Delivery Description: Spontaneous Placenta Disposition: [facility] Cord Vessel Description: 3 Vessels Cord Entanglement: None Infant A Gender: Male Delayed Cord Clamping: Yes Post Vaginal Delivery Medications Given After Delivery: IV Pitocin Episiotomy Description: None Laceration: None Complication Complications: None Procedures Urinary/Genital [id number]: [id number] Vaginal Delivery [facility]
--- NOTE | 2022-05-04 01:42 | DCINST_ITS ---
Discharge Instructions Diet Discharge Diet: No restrictions Activity Discharge Activity: Return to Normal Activity, May Drive, May Shower and May Take a Tub Bath (in 4 weeks) May resume sexual activity in: 6-8 weeks (after seen by OB provider) Weight Bearing Status: Full weight bearing Lifting Restrictions: none Dressing / Incision Call your doctor if you observe: Fever of 101 or Higher, Inability to urinate, Using more than 1 pad per hour (for more than 2 hours in a row or more), Shortness of breath, Dizziness, Chest pain and - (headache not controlled with tylenol, change in vision) Follow Up Care When: in 6 weeks for visit, call the office to make the appointment. If you had elevated blood pressures call the office to be seen within 1 week. Test Results: Test results from this visit will be discussed in further detail at your follow- up appointment, if applicable. Discharge Plan Admission Admit Date/Time: 05/03/22 07:05 Attending Provider: Ania Ibarra Primary Care Provider: Care Physician,Regina Primary Discharge Orders/Prescriptions Prescriptions: No Action Unisom (doxylamine) 25 mg tablet 25 mg PO QHS PRN (Reason: Sleep) PNV cmb#95-ferrous fumarate-FA 1 EACH tablet 1 ea PO DAILY Referrals / Follow Up: Care Physician,No Primary [Primary Care Provider] - Disposition Disposition (needs filled in before D/C Order can be placed): Home, Self Care
[2022-05-04] MEDS: Naproxen 500 MG Tablet PO ×2 (05:39→16:52)
--- NOTE | 2022-05-04 08:53 | PCM.PN.OB ---
Objective Data Objective Data Vital Signs: Vital Signs Temp Pulse Resp BP Pulse Ox O2 Del Method 97.1 F L 78 16 114/72 97 Room Air 05/04/22 07:46 05/04/22 07:46 05/04/22 07:46 05/04/22 07:46 05/04/22 07:46 05/04/22 07:46 Oxygen Delivery Method Room Air Weight: 170 lb Body Mass Index (BMI) 30.1 Intake & Output: Intake and Output for Last 24 Hours 05/02/22 05/03/22 05/04/22 23:59 23:59 23:59 Intake Total 3975.27 / 3975.27 703.06 / 703.06 Output Total 1200 / 1200 700 / 700 Balance 2775.27 / 2775.27 3.06 / 3.06 Lab / Micro Data Result Diagrams: 05/03/22 07:40 Labs: Laboratory Results - last 24 hr 05/03/22 07:40: Blood Type A POSITIVE, Antibody Screen NEGATIVE Physical Exam Narrative uterus firm deviated to left, 1above U. minimal vaginal bleeding, no clots. just voided 350ml. Const alert and oriented x3 Resp normal respiratory effort, normal air movement and no retractions Effort and Inspection: able to speak in complete sentences GI soft to palpation Inspection: edema findings bilateral Palpation: soft Extremity normal to inspection and full ROM Assessment & Plan (1) Vaginal delivery: COMMENT: CORY 41 IOL postdates boy PLAN: Plan obtain bladder scan if residual will straight cath continue to monitor strict I&O
--- NOTE | 2022-05-04 09:00 | NURSING ---
Patient was bladder scanned - 200 mL residual.
--- NOTE | 2022-05-04 09:14 | NURSING ---
Patient was bladder scanned - 200 mL residual after urinating 350 mL out. Patient then urinated 200 mL after bladder scan. Uterus still displaced to L. Firm.
--- NOTE | 2022-05-04 14:00 | NURSING ---
report given to ashwin jarvis rn who will assume care of this patient at this time
[2022-05-05 02:15] VITALS: BP 109/78; PULSE 95; RESP 15; TEMP 36.1; O2SAT 97
[2022-05-05] MEDS: Naproxen 500 MG Tablet PO (04:59)
[2022-05-05 08:43] VITALS: BP 103/69; PULSE 71; RESP 17; TEMP 35.9
--- NOTE | 2022-05-05 09:54 | PCM.DC.SUM ---
Providers Date of Admission: 05/03/22 Primary Care Physician: No Primary Care Phys Reason For Visit: VAG Diagnosis Discharge Diagnosis (1) Vaginal delivery: Status: Inactive Code(s): O80 - Encounter for full-term uncomplicated delivery Medications at Discharge Home Medications vit no.95-ferrous fumarate 28 mg-folic acid 800 mcg tablet 1 ea PO DAILY 10/02/19 doxylamine succinate 25 mg tablet (Unisom (doxylamine)) 25 mg PO QHS PRN Sleep 03/18/22 Hospital Course Operations None Procedures - (vaginal delivery ) Summary of Care Provided Minutes Spent on Discharge: 10 Hospital Course: The patient was admitted 05/03/22 for induction of labor. She progressed to complete and delivered a viable male on 05/04/22 just after midnight. She recovered well on PPD#1 and was discharged to home in stable condition. Physical Exam Const alert, oriented x3 and no apparent distress General Appearance: cooperative and comfortable Resp normal respiratory effort Cardio regular rate GI normal to inspection, nondistended, normoactive bowel sounds GI Narrative: uterus is firm below umbilicus Palpation: soft Back/Spine no CVA tenderness and thoraco-lumbar ROM normal Extremity normal to inspection, no clubbing, cyanosis or edema, no calf tenderness and no pedal edema Psych mental status grossly normal, thought process normal, cooperative, affect normal, speech normal, activity/motor behavior normal, denies homicidal ideation and denies suicidal ideation Weight / BMI Weight Weight: 170 lb Body Mass Index (BMI) 30.1 ABG / Lab / Microbiology Data Result Diagrams: 05/03/22 07:40 D/C Instructions Discharge Diet: No restrictions May resume sexual activity in: 6-8 weeks (after seen by OB provider) Weight Bearing Status: Full weight bearing Call your doctor if you observe: Fever of 101 or Higher, Inability to urinate, Using more than 1 pad per hour (for more than 2 hours in a row or more), Shortness of breath, Dizziness, Chest pain and - (headache not controlled with tylenol, change in vision) When: in 6 weeks for visit, call the office to make the appointment. If you had elevated blood pressures call the office to be seen within 1 week. Meaningful Use Info Meaningful Use Diagnoses (Choose all that apply): None applicable Discharge Plan Admission Admit Date/Time: 05/03/22 07:05 Attending Provider: Ania Ibarra Primary Care Provider: Care Physician,No Primary Discharge Orders/Prescriptions Prescriptions: No Action Unisom (doxylamine) 25 mg tablet 25 mg PO QHS PRN (Reason: Sleep) PNV cmb#95-ferrous fumarate-FA 1 EACH tablet 1 ea PO DAILY Referrals / Follow Up: Care Physician,No Primary [Primary Care Provider] - Disposition Disposition (needs filled in before D/C Order can be placed): Home, Self Care
== END 2022-05-05 11:10 | disposition home or self-care (01) | DRG 807 ==
PROVIDERS: Admitting Provider Obstetrics & Gynecology; Visit Provider Obstetrics & Gynecology
DX: O48.0 Post-term pregnancy (principal); Z37.0 Single live birth; O36.8130 Decreased fetal movements, third trimester, not applicable or unspecified; Z3A.40 40 weeks gestation of pregnancy
CPT/HCPCS: 59025; 59050; 85025; 86850; 86900; 86901; 99218; J7120; G0378; J2405

== ENCOUNTER → 2022-06-15 | Outpatient (CLI) | payer OTHER, SELFPAY ==
[2022-06-20 20:30] LABS: HPV Reflexed? NOT INDICATED
== END | disposition home or self-care (01) ==
LOC: LABSPEC 12:48
PROVIDERS: Referring Provider Obstetrics & Gynecology; Visit Provider Obstetrics & Gynecology
DX: Z12.4 Encounter for screening for malignant neoplasm of cervix (principal)
CPT/HCPCS: 88175; G0145

== ENCOUNTER → 2022-10-31 | Outpatient (CLI) | payer OTHER, SELFPAY ==
[2022-10-31 12:19] LABS: Absolute Lymphocyte Count 1.59 X10^3/uL (0.83-4.51); Absolute Neutrophil Count 3.4 X10^3/uL (2.0-7.7); Basophil# 0.04 X10^3/uL; Basophil% 0.7 % (0-1); Eosinophils% 1.8 % (0-5); Hemoglobin 15.1 g/dL (12.0-15.0); Lymphocyte # 1.59 X10^3/ul (0.83-4.51); Lymphocyte % 28.3 % (19-41); Mean Corp Hgb Conc 32.8 g/dL (32-36); Mean Corpuscular Hgb 30.9 pg (27.0-32.0); Mean Corpuscular Volume 94.3 fL (81-99); Mean Platelet Vol. 10.1 fl (6.2-12.0); Monocyte# 0.47 X10^3/uL; Monocyte% 8.4 % (0-10); NRBC Flagged by Analyzer 0 % (0-5); Neutrophil # 3.41 X10^3/uL (2.7-7.7); Neutrophil % 60.6 % (47-70); Platelet Count 317 K/mm3 (150-450); RBC Distribution Width CV 11.9 % (11.6-14.6); Red Blood Count 4.88 M/mm3 (4.2-5.4); White Blood Count 5.6 K/mm3 (4.4-11.0)
[2022-10-31 12:30] LABS: ALB/GLOB Ratio 1.1 RATIO (0.9-2.4); AST(SGOT) 28 U/L (15-37); Alanine Aminotransfer ALT/SGPT 25 U/L (13-56); Albumin, Serum 3.9 g/dL (3.2-5.0); Alkaline Phosphatase 77 U/L (45-117); Anion Gap 5 (5-15); BUN 17 mg/dL (7-18); BUN/Creat Ratio 24.1 RATIO (10-20); Calcium,Total 8.8 mg/dL (8.5-10.1); Chloride 108 mmol/L (98-107); Cholesterol 162 mg/dL (200); EST Glomerular Filtration Rate 105 mL/min (>60); Est Glom Filt Rate - Afr Amer 127 mL/min (>60); Globulin 3.6 g/dL (2.2-4.2); Glucose 92 mg/dL (74-106); High Density Lipoprotein 63 mg/dL; Potassium 4.1 mmol/L (3.5-5.1); Protein, Total 7.5 g/dL (6.4-8.2); Sodium Level 140 mmol/L (136-145); Triglycerides 71 mg/dL; Very Low Density Lipoprotein 14 mg/dL (5-40)
== END | disposition home or self-care (01) ==
LOC: BIMLAB 08:51
PROVIDERS: PCP Internal Medicine; Referring Provider Internal Medicine; Visit Provider Internal Medicine
DX: Z00.00 Encounter for general adult medical examination without abnormal findings (principal)
CPT/HCPCS: 36415; 80053; 80061; 85025

== ENCOUNTER → 2023-12-12 | Outpatient (CLI) | payer OTHER, SELFPAY ==
[2023-12-15 21:07] LABS: Chlamydia By Nucleic Acid AMP Negative (Negative); Gonococcus By Nucleic Acid AMP Negative (Negative)
== END | disposition home or self-care (01) ==
LOC: LABSPEC 15:44
PROVIDERS: PCP Internal Medicine; Referring Provider Advanced Practice Midwife; Visit Provider Advanced Practice Midwife
DX: O09.90 Supervision of high risk pregnancy, unspecified, unspecified trimester (principal)
CPT/HCPCS: 87086; 87088; 87491; 87591

== ENCOUNTER → 2024-01-23 | Outpatient (CLI) | payer OTHER, SELFPAY ==
[2024-01-23 15:47] LABS: Absolute Lymphocyte Count 1.39 X10^3/uL (0.83-4.51); Absolute Neutrophil Count 4.7 X10^3/uL (2.0-7.7); Basophil# 0.03 X10^3/uL; Basophil% 0.5 % (0-1); Eosinophil# 0.08 X10^3/uL; Eosinophils% 1.2 % (0-5); Hematocrit 35.5 % (37-47); Hemoglobin 12.2 g/dL (12.0-15.0); Lymphocyte # 1.39 X10^3/ul (0.83-4.51); Mean Corp Hgb Conc 34.4 g/dL (32-36); Mean Corpuscular Hgb 31.1 pg (27.0-32.0); Mean Corpuscular Volume 90.6 fL (81-99); Mean Platelet Vol. 9.6 fl (6.2-12.0); Monocyte# 0.41 X10^3/uL; Monocyte% 6.2 % (0-10); NRBC Flagged by Analyzer 0 % (0-5); Neutrophil % 70.8 % (47-70); Platelet Count 294 K/mm3 (150-450); RBC Distribution Width CV 13.5 % (11.6-14.6); RBC Distribution Width SD 44.3 fl (35.1-43.9); Red Blood Count 3.92 M/mm3 (4.2-5.4); White Blood Count 6.6 K/mm3 (4.4-11.0)
[2024-01-23 16:13] LABS: ALB/GLOB Ratio 0.8 RATIO (0.9-2.4); AST(SGOT) 18 U/L (15-37); Alanine Aminotransfer ALT/SGPT 13 U/L (13-56); Alkaline Phosphatase 56 U/L (45-117); Anion Gap 8 (5-15); BUN 11 mg/dL (7-18); Calcium,Total 8.5 mg/dL (8.5-10.1); Chloride 105 mmol/L (98-107); Creatinine, Serum 0.52 mg/dL (0.55-1.02); EST Glomerular Filtration Rate 146 mL/min (>60); Est Glom Filt Rate - Afr Amer 177 mL/min (>60); Globulin 3.9 g/dL (2.2-4.2); Glucose 104 mg/dL (74-106); Potassium 3.9 mmol/L (3.5-5.1); Protein, Total 6.9 g/dL (6.4-8.2); Sodium Level 136 mmol/L (136-145)
[2024-01-23 16:52] LABS: HIV - WCH Non-Reactive (Nonreactive); Hepatitis B Surface Antigen Non-Reactive (Nonreactive); Hepatitis C Antibody Non-Reactive (Nonreactive); Rubella IgG Reactive (Nonreactive); Syphilis Antibodies Non-reactive
== END | disposition home or self-care (01) ==
LOC: LABSPEC 14:43
PROVIDERS: PCP Internal Medicine; Referring Provider Advanced Practice Midwife; Visit Provider Advanced Practice Midwife
DX: Z34.81 Encounter for supervision of other normal pregnancy, first trimester (principal)
CPT/HCPCS: 80053; 85025; 86703; 86762; 86780; 86803; 86850; 86900; 86901; 87340

== ENCOUNTER → 2024-04-29 | Outpatient (CLI) | payer OTHER, SELFPAY ==
[2024-04-29 10:16] LABS: Absolute Lymphocyte Count 0.92 X10^3/uL (0.83-4.51); Absolute Neutrophil Count 5.3 X10^3/uL (2.0-7.7); Basophil# 0.02 X10^3/uL; Basophil% 0.3 % (0-1); Eosinophil# 0.06 X10^3/uL; Eosinophils% 0.9 % (0-5); Hematocrit 36.6 % (37-47); Hemoglobin 12.3 g/dL (12.0-15.0); Lymphocyte # 0.92 X10^3/ul (0.83-4.51); Lymphocyte % 13.6 % (19-41); Mean Corp Hgb Conc 33.6 g/dL (32-36); Mean Corpuscular Hgb 32.7 pg (27.0-32.0); Mean Corpuscular Volume 97.3 fL (81-99); Mean Platelet Vol. 9.2 fl (6.2-12.0); Monocyte# 0.38 X10^3/uL; Monocyte% 5.6 % (0-10); NRBC Flagged by Analyzer 0 % (0-5); Neutrophil # 5.34 X10^3/uL (2.7-7.7); Neutrophil % 79.3 % (47-70); Platelet Count 204 K/mm3 (150-450); RBC Distribution Width CV 13.8 % (11.6-14.6); RBC Distribution Width SD 48.3 fl (35.1-43.9); Red Blood Count 3.76 M/mm3 (4.2-5.4); White Blood Count 6.7 K/mm3 (4.4-11.0)
[2024-04-29 10:22] LABS: Glucose Challenge Gest 1H 50g 136 mg/dL (70-140)
[2024-04-29 10:56] LABS: HIV - WCH Non-Reactive (Nonreactive); Syphilis Antibodies Non-reactive
== END | disposition home or self-care (01) ==
LOC: BWCLAB 08:16
PROVIDERS: PCP Internal Medicine; Referring Provider Obstetrics & Gynecology; Visit Provider Obstetrics & Gynecology
DX: O24.419 Gestational diabetes mellitus in pregnancy, unspecified control (principal); Z3A.00 Weeks of gestation of pregnancy not specified
CPT/HCPCS: 36415; 82950; 85025; 86703; 86780

== ENCOUNTER → 2024-05-01 | Outpatient (CLI) | payer OTHER, SELFPAY ==
[2024-05-01 10:38] LABS: Bedside Glucose 81 mg/dL (74-106)
[2024-05-01 11:00] LABS: Glucose GTT-Gestation. Fasting 81 mg/dL (<105)
[2024-05-01 11:47] LABS: Glucose GTT-Gestational 1 Hr 147 mg/dL (<190)
[2024-05-01 12:53] LABS: Glucose GTT-Gestational 2 Hr 176 mg/dL (<165)
[2024-05-01 14:10] LABS: Glucose GTT-Gestational 3 Hr 141 L (<145)
== END | disposition home or self-care (01) ==
LOC: LAB 09:57
PROVIDERS: PCP Internal Medicine; Referring Provider Nurse Practitioner Women's Health; Visit Provider Nurse Practitioner Women's Health
DX: O99.810 Abnormal glucose complicating pregnancy (principal); Z3A.00 Weeks of gestation of pregnancy not specified
CPT/HCPCS: 36415; 82951; 82952; 82962

== ENCOUNTER → 2024-06-28 | Outpatient (CLI) | payer OTHER, SELFPAY | END | disposition home or self-care (01) | LOC: LABSPEC 11:15 | PROVIDERS: PCP Internal Medicine; Referring Provider Registered Nurse; Visit Provider Registered Nurse | DX: Z34.93 Encounter for supervision of normal pregnancy, unspecified, third trimester (principal) | CPT/HCPCS: 87081 ==

== ENCOUNTER → 2024-06-28 | Outpatient (CLI) | payer OTHER, SELFPAY ==
--- NOTE | 2024-06-28 08:39 | US_ITS ---
STUDY: SECOND AND THIRD TRIMESTER OBSTETRICAL ULTRASOUND REASON FOR EXAM: Female, 28 years old GDM LMP: October 16, 2023. TECHNIQUE: Transabdominal TECHNICAL QUALITY: Adequate. PRIOR ULTRASOUND: None. FINDINGS: There is a single intrauterine fetus. The fetus is in a cephalic presentation. There is demonstrated cardiac activity with a heart rate of 150 bpm. There is a normal amniotic fluid volume. The largest amniotic fluid pocket measures 4.4 cm. The amniotic fluid index (MARIA LUISA) is 15.4 cm. The placenta is posterior in location and is not low lying. There are Grade 2 placental changes. The adnexal regions are not visualized. BIOMETRY: BPD: 8.6 cm: 34 weeks, 6 days: 16.2% HC: 32.6 cm: 37 weeks, 0 days: 31% AC: 33.6 cm: 37 weeks, 4 days: 85% FL: 7 cm: 36 weeks, 0 days: 34% CI: 74% FL/BPD: 81% FL/HC: 22% FL/AC: 21% HC/AC: 1 age by current US: 36 weeks, 3 days. AGUS by current US: July 23, 2024. Estimated weight: 3032 grams, +/- 455 grams, 60 %. Age by LMP: 36 weeks, 4 days. AGUS by LMP: July 22, 2024. US/OB Limited With Biometrics IMPRESSION: Single live intrauterine gestation with mean gestational age of 36 weeks and 3 days. Electronically Signed: Cory Whitehead MD at 15:20 EST ,
== END | disposition home or self-care (01) ==
LOC: US 08:38
PROVIDERS: PCP Internal Medicine; Referring Provider Advanced Practice Midwife; Visit Provider Advanced Practice Midwife
DX: O24.419 Gestational diabetes mellitus in pregnancy, unspecified control (principal); O09.93 Supervision of high risk pregnancy, unspecified, third trimester; Z3A.32 32 weeks gestation of pregnancy
CPT/HCPCS: 76816

== ENCOUNTER 2024-07-17 07:09 | Inpatient (IN) | payer OTHER, SELFPAY ==
[2024-07-17] VITALS (66 sets, daily range): BP systolic 92–126; BP diastolic 55–82; PULSE 71–119; RESP 14–18; TEMP 36.3–37.2; O2SAT 87–100; BMI 29.9
[2024-07-17] MEDS: Lactated Ringers 1,000 ML 50 ML IV ×2 (07:38→10:19)
[2024-07-17 07:54] LABS: Absolute Lymphocyte Count 1.04 X10^3/uL (0.83-4.51); Absolute Neutrophil Count 5.6 X10^3/uL (2.0-7.7); Basophil# 0.02 X10^3/uL; Basophil% 0.3 % (0-1); Eosinophil# 0.07 X10^3/uL; Hematocrit 34.5 % (37-47); Hemoglobin 11.6 g/dL (12.0-15.0); Lymphocyte # 1.04 X10^3/ul (0.83-4.51); Lymphocyte % 14.4 % (19-41); Mean Corp Hgb Conc 33.6 g/dL (32-36); Mean Corpuscular Hgb 31.8 pg (27.0-32.0); Mean Corpuscular Volume 94.5 fL (81-99); Mean Platelet Vol. 8.9 fl (6.2-12.0); Monocyte# 0.44 X10^3/uL; Monocyte% 6.1 % (0-10); NRBC Flagged by Analyzer 0 % (0-5); Neutrophil # 5.62 X10^3/uL (2.7-7.7); Neutrophil % 77.9 % (47-70); Platelet Count 177 K/mm3 (150-450); RBC Distribution Width CV 13.7 % (11.6-14.6); RBC Distribution Width SD 47.3 fl (35.1-43.9); Red Blood Count 3.65 M/mm3 (4.2-5.4); White Blood Count 7.2 K/mm3 (4.4-11.0)
[2024-07-17] MEDS: 0.9% Normal Saline Single 100 ML IV.SOLN. INTRA-UTER (07:57)
[2024-07-17] MEDS: Oxytocin 15 Units/NS 250ml 15 UNITS/250 ML IV.SOLN 2 UNITS IV (07:58)
[2024-07-17 08:50] LABS: Bedside Glucose 84 mg/dL (74-106)
[2024-07-17 09:31] LABS: Syphilis Antibodies Non-reactive
[2024-07-17 09:39] LABS: Bedside Glucose 69 mg/dL (74-106)
[2024-07-17 10:41] LABS: Bedside Glucose 77 mg/dL (74-106)
[2024-07-17 10:53] LABS: Bedside Glucose 93 mg/dL (74-106)
[2024-07-17 11:51] LABS: Bedside Glucose 71 mg/dL (74-106)
[2024-07-17] MEDS: Lactated Ringers 1,000 ML 999 ML IV (13:08)
[2024-07-17] MEDS: fentaNYL-bupivacaine (epidural) 100 ML BAG EPIDURAL (13:30)
[2024-07-17 14:35] LABS: Bedside Glucose 72 mg/dL (74-106)
[2024-07-17 15:28] LABS: Bedside Glucose 76 mg/dL (74-106)
[2024-07-17 17:37] LABS: Bedside Glucose 65 mg/dL (74-106)
[2024-07-17 17:37] LABS: Bedside Glucose 82 mg/dL (74-106)
[2024-07-17] MEDS: Oxytocin 15 Units/NS 250ml 15 UNITS/250 ML IV.SOLN 83 UNITS IV (18:23)
--- NOTE | 2024-07-17 18:28 | OB.VAGDELI_ITS ---
Assessment & Plan (1) Gestational diabetes: COMMENT: growth at 36 weeks-60%. BS fasting & 2 hr post meals, network systems administrator consult. reviewed and well controlled. discussed always checking fasting but may reduce checks after meals if controlled. (2) History of miscarriage, currently : COMMENT: Between viable 's (3) Supervision of high-risk : QUALIFIERS: Trimester: third trimester Qualified Code(s): O09.93 - Supervision of high risk , unspecified, third trimester COMMENT: PRR, , AGUS 07/22/24, surprise PC Maizey, Mac Hero. (4) : QUALIFIERS: Weeks of gestation: 38 weeks Qualified Code(s): Z3A.38 - 38 weeks gestation of COMMENT: GBS neg. elects NIPT testing No gender, low risk. nl anatomy. (5) Vaginal delivery: COMMENT: SM IOL GDM girl Maternal Data Information AGUS Calculator Estimated Delivery Date Method Current WG Current Estimate 07/22/24 LMP (Certain) 39w 3d Vaginal Delivery Maternal Presentation Maternal Presentation: see assessment and plan Vaginal Delivery Information Procedure Performed: Spontaneous Vaginal Delivery Surgeon/Practitioner: Ania Ibarra Pre-Procedure Diagnosis: see assessment and plan Post-Procedure Diagnosis: same Type of anesthesia: Epidural Estimated Blood Loss: 200 Findings Description of procedure: Patient began pushing and delivered the head in the MOIZ presentation. The head was delivered atraumatically and a tight triple nuchal cord was seen. The anterior shoulders delivered without complication and the cord was cut, and the unwrapped, and then the rest of infant delivered without complication and was placed on the maternal abdomen. Delayed cord clamping was employed for approximately 60 seconds. Cord was clamped and cut and gentle traction was applied to the cord and the placenta delivered spontaneously immediately following it was noted to be intact with three-vessel cord. The perineum and vagina were inspected and noted to have no laceration. EBL was 200. Patient and infant tolerated delivery well. Presentation: Vertex Placental Delivery Description: Spontaneous Specimen collected: Yes Description of specimen(s) removed: placenta Communications Planner [employer] humanities teacher: No Post Vaginal Deli Medications given after delivery: Other (pitocin) Complication Complications: No Multi Select Codes Urinary/Genital Urinary/Genital CPT Codes: 36137 Vaginal Delivery [facility]
--- NOTE | 2024-07-17 18:28 | PCM.HP.OB ---
HPI - General General Date of Admission: 07/17/24 HPI Narrative VÍCTOR MELGAR, is a 28 F who presents for IOL secondary to GDM. she has had well controlled gdm with diet, no vb lof good fm nor egular ctx Maternal Data Information AGUS Calculator Estimated Delivery Date Method Current WG Current Estimate 07/22/24 LMP (Certain) 39w 3d PFSH PFSH Medical History Perianal dermatitis Vitamin D deficiency, unspecified Labial varicosities Family history of ovarian carcinoma Family history of breast cancer in mother Home Medications ?Medication ?Instructions ?Recorded ?Last Taken ?Type doxylamine succinate 25 mg tablet 25 mg PO QHS PRN nausea 12/08/23 07/16/24 History (Unisom (doxylamine)) multivitamin no.47-iron fum 27 1 cap PO DAILY 12/08/23 07/17/24 History mg-folate no.1 1 mg-dha 300 mg capsule (PNV-DHA) blood sugar diagnostic (Blood #120 ea 05/01/24 Unknown Rx Glucose Test strips) blood-glucose meter #1 ea 05/01/24 Unknown Rx lancets #200 ea 05/01/24 Unknown Rx Allergy/AdvReac Type Severity Reaction Status Date / Time No Known Allergies Allergy Verified 07/17/24 08:42 Family History Mother Breast cancer age 29 and again age 35. Neg BRCA testing Grandmother Cancer maternal: ovarian Ovarian cancer Sister Endometriosis PCOS (polycystic ovarian syndrome) Father Alcoholism Surgical History History of oral surgery Social History adopted: No household members: spouse and children number of children: 2 current occupational status: unemployed current occupation: [employer] pets and animals: Yes pets and animals: dog(s) history of recent travel: Yes (November) out of state: Yes out of country: No sexually active: Yes Smoking Status: Never smoker alcohol intake: current alcohol intake frequency: holidays/special occasions only details: social- Not while substance use type: does not use well-balanced diet: daily or most days caffeine: No eating out: rarely or never during the past year weight has: decreased > 10 lbs what type of physical activity do you participate in: running and weight training frequency: 5-6 times per week duration: 30-45 minutes/day brijesh/episcopalian: [employer] seatbelt use: always do you feel safe at home: Yes additional social history: Spouse Hero 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 Date Name GA/Weeks Outcome Route Bth Weight Gen Labor Lgth Anesthesia Del Locatn Provider FOB Unknown 05/18/20 Ma[place] 39 live - full term 7# 2oz Female 26 hr epidural [facility] Hero Unknown SAB 07/202105/04/22 Mac 41 live - full term 9lbs 6oz Male epidural [facility] Ania Ibarra Hero Delivery Date: Last Updated by: Laurie Valdes minor TIA at 36 wk. No anticoagulants. Symptoms resolved. Pt states it was ruled Out at [facility]. Delivery Date: 05/04/22 Last Updated by: Laurie Valdes see problem list for complications, and 41 iol postdates Visit Details Expected Delivery Route/Plan Labor Preferences- CB/BF classes: no labor support person: Hero labor intervention preferences: epidural pain management options preferred: [] cut cord/dad catch: maybe : yes PP control planned: discussed discussed possible routes of delivery and associated risks: [] special requests: [] Plans Covid status: [] Flu vaccine: declines Tdap vaccine: declines Rhogam: na LARC form signed: yes Problem list reviewed and updated with the most current plan of care details and appropriate orders placed. Relevant counseling for the gestational age provided. Continue routine care and follow up unless otherwise noted in visit notes/problem list details OB Flowsheet Initial Weight: Not Recorded Date <del>?</del> EGA Weight BP Urine Prot <del>?</del> Glucose FHR FuHt Pres Dilation <del>?</del> Effaced St Visit Note 12/12/23 <del>?</del> 8w 1d 140 lb 107/76 <del>?</del> 168 <del>?</del> KW- CRL cons with dates. accepts NIPT. 01/12/24 <del>?</del> 12w 4d 135 lb 8 oz 109/78 Negative <del>?</del> Negative 160 <del>?</del> SM- no vb cramping 02/09/24 <del>?</del> 16w 4d 143 lb 107/68 <del>?</del> 150 <del>?</del> SM- no vb crmaping 03/05/24 <del>?</del> 20w 1d 151 lb 4 oz 104/72 <del>?</del> 152 <del>?</del> MH-No VB. Nausea improved. Denies concerns. 04/05/24 <del>?</del> 24w 4d 156 lb 118/79 Negative <del>?</del> Negative 145 <del>?</del> JV- no lof, vaginal bleeding, or dec fm. glucola ordered. 04/29/24 <del>?</del> 28w 0d 161 lb 8 oz 102/70 Negative <del>?</del> Negative 153 <del>?</del> MH-No VB, LOF. Good FM. Declines tdap. Larc. 28 wk labs pending 05/13/24 <del>?</del> 30w 0d 162 lb 107/73 <del>?</del> 140 30 <del>?</del> SM- no vb lof good fm nor egualr ctx reviewed BS 05/27/24 <del>?</del> 32w 0d 162 lb 100/68 Negative <del>?</del> Negative 130 32 <del>?</del> KW- no vb/lof/ctx. good fm. on z pack for URI. sugars are well controlled. growth US ordered 06/10/24 <del>?</del> 34w 0d 164 lb 2 oz 116/78 Negative <del>?</del> Negative 140 34 <del>?</del> JV- no complaints other than some sob. pulse ox is 98% and is feeling better since starting the zpak JV- no complaints other than some sob. pulse ox is 98% and is feeling better since starting the zpak. normal glucose log. growth scan for 36 weeks. 06/28/24 <del>?</del> 36w 4d 168 lb 113/73 Negative <del>?</del> Negative 145 36 Cephalic 1 <del>?</del> 30 -4 LC- fasting 70-80s, pp 85-106. LC- fasting 70-80s, pp 85-106. gbs obtained. no vb/ctx/lof. good fm. 07/05/24 <del>?</del> 37w 4d 168 lb 2 oz 102/68 Negative <del>?</del> Negative 142 37 Cephalic <del>?</del> JV- cephalic on bedside scan. glucose log is normal. plan 40 week delivery. declines pelvic exam 07/12/24 <del>?</del> 38w 4d 165 lb 115/79 <del>?</del> 140 38 Cephalic 2 <del>?</del> SM- BS controlled, discussed IOL next monday, NST today for some may fm. no vb lof no regular ctx NST FHR Rate Baby A Baseline: 130 Variability:: Moderate Accelerations:: 15 x 15 Decelerations:: None NST Reactive:: Yes FHR Category:: Category I Uterine Activity:: irregular ROS Constitutional Constitutional: Reports systems reviewed and no addt'l complaints, except as documented Eyes Eyes: Denies change in vision ENT HEENT: Reports systems reviewed and no addt'l complaints, except as documented; Denies headache(s) Cardiovascular Cardiovascular: Reports systems reviewed and no addt'l complaints, except as documented; Denies chest pain or dyspnea Respiratory/Chest Respiratory/Chest: Reports systems reviewed and no addt'l complaints, except as documented Gastrointestinal Gastrointestinal: Reports systems reviewed and no addt'l complaints, except as documented; Denies abdominal pain Genitourinary Genitourinary: Reports systems reviewed and no addt'l complaints, except as documented, contractions Details: present (irregular) and movement Details: present; Denies dysuria or genital lesions Musculoskeletal Musculoskeletal: Reports systems reviewed and no addt'l complaints, except as documented Neurologic Neurologic: Reports systems reviewed and no addt'l complaints, except as documented Endocrine Endocrinology: Reports systems reviewed and no addt'l complaints, except as documented Vital Signs Vital Signs Vital Signs: 07/17/24 07:59 07/17/24 07:59 07/17/24 07:59 Temperature 98.6 F Temperature Source Temporal Pulse Rate Respiratory Rate 18 Blood Pressure BP Systolic BP Diastolic Pulse Ox 07/17/24 08:00 07/17/24 08:00 07/17/24 08:00 Temperature Temperature Source Pulse Rate 101 H Respiratory Rate Blood Pressure 118/73 BP Systolic 118 BP Diastolic 73 Pulse Ox 97 07/17/24 09:17 07/17/24 09:17 07/17/24 09:17 Temperature Temperature Source Pulse Rate 114 H Respiratory Rate Blood Pressure 121/74 H BP Systolic 121 BP Diastolic 74 Pulse Ox 100 07/17/24 09:17 07/17/24 09:17 07/17/24 09:59 Temperature 97.8 F Temperature Source Pulse Rate 85 Respiratory Rate 16 Blood Pressure BP Systolic BP Diastolic Pulse Ox 07/17/24 09:59 07/17/24 10:00 07/17/24 10:00 Temperature Temperature Source Pulse Rate 88 Respiratory Rate Blood Pressure 126/82 H BP Systolic 126 BP Diastolic 82 Pulse Ox 91 07/17/24 10:00 07/17/24 10:00 07/17/24 10:03 Temperature 97.6 F L Temperature Source Pulse Rate Respiratory Rate 18 Blood Pressure BP Systolic BP Diastolic Pulse Ox 99 07/17/24 10:51 07/17/24 10:51 07/17/24 10:51 Temperature Temperature Source Pulse Rate 91 Respiratory Rate 18 Blood Pressure 108/71 BP Systolic 108 BP Diastolic 71 Pulse Ox 07/17/24 10:51 07/17/24 10:51 07/17/24 12:03 Temperature 97.4 F L Temperature Source Temporal Pulse Rate Respiratory Rate Blood Pressure BP Systolic BP Diastolic Pulse Ox 100 07/17/24 12:03 07/17/24 12:03 07/17/24 12:05 Temperature 97.5 F L Temperature Source Pulse Rate Respiratory Rate 16 Blood Pressure 122/70 H BP Systolic 122 BP Diastolic 70 Pulse Ox 07/17/24 12:05 07/17/24 13:14 07/17/24 13:14 Temperature Temperature Source Pulse Rate 90 89 Respiratory Rate Blood Pressure BP Systolic BP Diastolic Pulse Ox 95 07/17/24 13:15 07/17/24 13:15 07/17/24 13:19 Temperature Temperature Source Pulse Rate 91 98 Respiratory Rate Blood Pressure BP Systolic BP Diastolic Pulse Ox 90 07/17/24 13:19 07/17/24 13:22 07/17/24 13:22 Temperature Temperature Source Pulse Rate 100 Respiratory Rate Blood Pressure 118/79 BP Systolic 118 BP Diastolic 79 Pulse Ox 100 07/17/24 13:24 07/17/24 13:24 07/17/24 13:27 Temperature Temperature Source Pulse Rate 93 Respiratory Rate Blood Pressure 113/74 BP Systolic 113 BP Diastolic 74 Pulse Ox 87 07/17/24 13:27 07/17/24 13:27 07/17/24 13:29 Temperature Temperature Source Pulse Rate 96 Respiratory Rate 16 Blood Pressure BP Systolic BP Diastolic Pulse Ox 94 07/17/24 13:29 07/17/24 13:33 07/17/24 13:33 Temperature Temperature Source Pulse Rate 98 108 H Respiratory Rate Blood Pressure 116/74 BP Systolic 116 BP Diastolic 74 Pulse Ox 07/17/24 13:33 07/17/24 13:34 07/17/24 13:34 Temperature Temperature Source Pulse Rate 91 Respiratory Rate 14 Blood Pressure BP Systolic BP Diastolic Pulse Ox 100 07/17/24 13:38 07/17/24 13:38 07/17/24 13:40 Temperature Temperature Source Pulse Rate 94 97 Respiratory Rate Blood Pressure 103/67 BP Systolic 103 BP Diastolic 67 Pulse Ox 07/17/24 13:40 07/17/24 13:42 07/17/24 13:42 Temperature Temperature Source Pulse Rate 93 Respiratory Rate Blood Pressure 100/69 BP Systolic 100 BP Diastolic 69 Pulse Ox 100 07/17/24 13:42 07/17/24 13:47 07/17/24 13:47 Temperature Temperature Source Pulse Rate 83 Respiratory Rate 14 Blood Pressure 105/68 BP Systolic 105 BP Diastolic 68 Pulse Ox 07/17/24 13:47 07/17/24 13:47 07/17/24 13:48 Temperature Temperature Source Pulse Rate Respiratory Rate 16 Blood Pressure BP Systolic BP Diastolic Pulse Ox 98 91 07/17/24 13:48 07/17/24 13:52 07/17/24 13:52 Temperature Temperature Source Pulse Rate 84 110 H Respiratory Rate Blood Pressure 99/61 BP Systolic 99 BP Diastolic 61 Pulse Ox 07/17/24 13:52 07/17/24 13:52 07/17/24 13:53 Temperature Temperature Source Pulse Rate Respiratory Rate 16 18 Blood Pressure BP Systolic BP Diastolic Pulse Ox 100 07/17/24 13:53 07/17/24 13:57 07/17/24 13:57 Temperature 97.9 F Temperature Source Pulse Rate 87 Respiratory Rate Blood Pressure BP Systolic BP Diastolic Pulse Ox 99 07/17/24 13:58 07/17/24 13:58 07/17/24 14:02 Temperature Temperature Source Pulse Rate 99 85 Respiratory Rate Blood Pressure 97/62 BP Systolic 97 BP Diastolic 62 Pulse Ox 07/17/24 14:02 07/17/24 14:03 07/17/24 14:03 Temperature Temperature Source Pulse Rate 82 Respiratory Rate Blood Pressure 101/61 BP Systolic 101 BP Diastolic 61 Pulse Ox 99 07/17/24 14:03 07/17/24 14:07 07/17/24 14:07 Temperature Temperature Source Pulse Rate 90 Respiratory Rate 15 Blood Pressure BP Systolic BP Diastolic Pulse Ox 99 07/17/24 14:08 07/17/24 14:08 07/17/24 14:12 Temperature Temperature Source Pulse Rate 91 88 Respiratory Rate Blood Pressure 104/63 BP Systolic 104 BP Diastolic 63 Pulse Ox 07/17/24 14:12 07/17/24 14:17 07/17/24 14:17 Temperature Temperature Source Pulse Rate 90 Respiratory Rate Blood Pressure BP Systolic BP Diastolic Pulse Ox 99 99 07/17/24 14:22 07/17/24 14:22 07/17/24 14:27 Temperature Temperature Source Pulse Rate 71 119 H Respiratory Rate Blood Pressure BP Systolic BP Diastolic Pulse Ox 98 07/17/24 14:27 07/17/24 14:32 07/17/24 14:32 Temperature Temperature Source Pulse Rate 79 Respiratory Rate Blood Pressure BP Systolic BP Diastolic Pulse Ox 99 99 07/17/24 14:37 07/17/24 14:37 07/17/24 14:37 Temperature Temperature Source Pulse Rate 104 H Respiratory Rate 16 Blood Pressure 96/58 L BP Systolic 96 BP Diastolic 58 Pulse Ox 07/17/24 15:01 07/17/24 15:01 07/17/24 15:01 Temperature Temperature Source Pulse Rate 83 Respiratory Rate 16 Blood Pressure BP Systolic BP Diastolic Pulse Ox 98 07/17/24 15:01 07/17/24 15:03 07/17/24 15:03 Temperature 98.1 F Temperature Source Pulse Rate 82 Respiratory Rate Blood Pressure 92/55 L BP Systolic 92 BP Diastolic 55 Pulse Ox 07/17/24 16:53 07/17/24 16:53 07/17/24 16:54 Temperature Temperature Source Pulse Rate 104 H Respiratory Rate 18 Blood Pressure 100/65 BP Systolic 100 BP Diastolic 65 Pulse Ox 07/17/24 16:54 07/17/24 18:05 07/17/24 18:05 Temperature 98.3 F Temperature Source Pulse Rate 108 H Respiratory Rate Blood Pressure BP Systolic BP Diastolic Pulse Ox 97 07/17/24 18:06 07/17/24 18:06 07/17/24 18:10 Temperature Temperature Source Pulse Rate 96 105 H Respiratory Rate Blood Pressure 117/66 BP Systolic 117 BP Diastolic 66 Pulse Ox 07/17/24 18:10 Temperature Temperature Source Pulse Rate Respiratory Rate Blood Pressure BP Systolic BP Diastolic Pulse Ox 93 Weight Weight: 169 lb Body Mass Index (BMI) 29.9 Physical Exam Const alert, oriented x3, no apparent distress and healthy appearing HEENT normocephalic and moist oral mucous membranes Head and Scalp: atraumatic Neck full ROM, no lymphadenopathy, supple and thyroid normal General: trachea midline Lymph Lymphatic: no lymphadenopathy noted Chest inspection of chest normal Resp normal respiratory effort Cardio regular rate GI soft to palpation and non-tender GI Narrative: gravid Inspection: gravid external exam normal Manual OB Exam: estimated gestational size appropriate, presentation cephalic, dilated, effaced and station Extremity normal to inspection General Extremity: Negative for edema Skin no rashes or lesions noted Neuro no focal motor deficits and deep tendon reflexes 2+ bilaterally Motor Exam: strength 5/5 throughout and clonus absent Psych mental status grossly normal Labs Labs Labs: Blood Type A POSITIVE Antibody Screen NEGATIVE Hct 34.5 % (37-47) L Hgb 11.6 g/dL (12.0-15.0) L Obstetrics Ultrasound Syphilis Total Ab Non-reactive Rubella IgG Antibody Reactive (Nonreactive) Hep Bs Antigen Non-Reactive (Nonreactive) Hepatitis C Antibody Non-Reactive (Nonreactive) Chlamydia DNA (MANDI) Negative (Negative) N.gonorrhoeae DNA (MANDI) Negative (Negative) HIV 1&2 Antibody Non-Reactive (Nonreactive) Glucose 1 Hr 50 gm 136 mg/dL (70-140) Gest Glucose Tolerance MG/DL Rhogam given: No Assessment & Plan (1) Gestational diabetes: COMMENT: growth at 36 weeks-60%. BS fasting & 2 hr post meals, broom bundler consult. reviewed and well controlled. discussed always checking fasting but may reduce checks after meals if controlled. (2) History of miscarriage, currently : COMMENT: Between viable 's (3) Supervision of high-risk : QUALIFIERS: Trimester: third trimester Qualified Code(s): O09.93 - Supervision of high risk , unspecified, third trimester COMMENT: PRR, , AGUS 07/22/24, surprise PC Kae, Mac Hero. (4) : QUALIFIERS: Weeks of gestation: 38 weeks Qualified Code(s): Z3A.38 - 38 weeks gestation of COMMENT: GBS neg. elects NIPT testing No gender, low risk. nl anatomy. PLAN: Plan Patient presents IOL, plan management for with fb pit. Pain management: plans epidural. GBS negative. Management of any complications: gdm I have reviewed the [facility] and made any clinically relevant updates.
[2024-07-17 19:40] LABS: Bedside Glucose 93 mg/dL (74-106)
[2024-07-17 19:40] LABS: Bedside Glucose 84 mg/dL (74-106)
[2024-07-17] MEDS: Naproxen 500 MG Tablet PO (21:55)
[2024-07-18] VITALS (10 sets, daily range): BP systolic 98–111; BP diastolic 53–74; PULSE 71–91; RESP 16; TEMP 36.3–36.8; O2SAT 96–99
--- NOTE | 2024-07-18 06:53 | DCINST_ITS ---
Discharge Instructions Diet Discharge Diet: No restrictions DC O2, CPAP, BIPAP needs Home O2 Discharge instructions: No Dressing / Incision Discharge Activity: Return to Normal Activity, May Not Drive (while taking narcotic pain medications.) and May Shower May resume sexual activity in: 4-6 weeks Dressing / Incision Call your doctor if your incision/area has: Continuous Slow Oozing, Sudden Increased Bleeding, Increased Pain/ Swelling, Increased Redness and Foul Smelling Discharge Follow Up Care Please Follow Up With: Ania Ibarra MD When: Call [phone] to make an appointment with your doctor in 6 weeks. If you had elevated blood pressure or 4th degree laceration, you will need to be seen in 2 weeks. Test Results: Test results from this visit will be discussed in further detail at your follow- up appointment, if applicable. Discharge Plan Admission Admit Date/Time: 07/17/24 07:09 Attending Provider: Ania Ibarra Primary Care Provider: Jennifer Toro Discharge Orders/Prescriptions Prescriptions: No Action PNV-DHA 27 mg iron-1 mg -300 mg capsule 1 cap PO DAILY Unisom (doxylamine) 25 mg tablet 25 mg PO QHS PRN (Reason: nausea) (DME) Blood Glucose Test Strip See Rx Instructions .MEDSUPPLY Qty: 120 5RF Rx Instructions: As directed-fasting & 2 hr post meals (DME) blood-glucose meter Misc See Rx Instructions .MEDSUPPLY Qty: 1 0RF Rx Instructions: As directed- Test fasting and 2 hours after meals (DME) lancets Misc See Rx Instructions .MEDSUPPLY Qty: 200 5RF Rx Instructions: As directed-fasting & 2 hr post meals Referrals / Follow Up: Jennifer Toro MD [Primary Care Provider] -
[2024-07-18 06:56] LABS: Bedside Glucose 79 mg/dL (74-106)
--- NOTE | 2024-07-18 09:07 | RAD_ITS ---
EXAM: XR Chest, 2 Views CLINICAL INDICATION: TECHNIQUE: Frontal and lateral views of the chest. COMPARISON: No relevant prior studies available. FINDINGS: LUNGS AND PLEURAL SPACES: Unremarkable. No consolidation. No pneumothorax. HEART: Unremarkable. No cardiomegaly. MEDIASTINUM: Unremarkable. Normal mediastinal contour. BONES/JOINTS: Unremarkable. No acute fracture. RAD/Chest PA and Lateral IMPRESSION: No acute cardiopulmonary process. Reading [facility]
--- NOTE | 2024-07-18 09:17 | PCM.PN.OB ---
Subjective Subjective Patient doing well without complaints. Tolerating PO. Ambulating and voiding without difficulty. Feeding well. Denies chest pain, shortness of breath, calf pain/swelling, fevers, chills, lightheadedness. She does have a persistent cough and is requesting a z-david Objective Data Objective Data Vital Signs: Vital Signs Temp Pulse Resp BP Pulse Ox O2 Del Method 97.7 F L 80 16 103/64 99 Room Air 07/18/24 07:16 07/18/24 07:17 07/18/24 07:16 07/18/24 07:17 07/18/24 07:17 07/18/24 07:16 Oxygen Delivery Method Room Air Weight: 169 lb Body Mass Index (BMI) 29.9 Intake & Output: Intake and Output for Last 24 Hours 07/16/24 07/17/24 07/18/24 23:59 23:59 23:59 Intake Total 3345.92 / 3345.92 Output Total 1000 / 1000 1400 / 1400 Balance 2345.92 / 2345.92 -1400 / -1400 Lab / Micro Data 07/17/24 07:35 Labs: Laboratory Results - last 24 hr 07/17/24 07:35: Syphilis Total Ab Non-reactive 07/17/24 09:16: POC Glucose 69 L 07/17/24 09:37: POC Glucose 77 07/17/24 10:32: POC Glucose 93 07/17/24 11:33: POC Glucose 71 L 07/17/24 14:16: POC Glucose 72 L 07/17/24 15:08: POC Glucose 76 07/17/24 16:29: POC Glucose 65 L 07/17/24 16:52: POC Glucose 82 07/17/24 18:08: POC Glucose 84 07/17/24 18:42: POC Glucose 93 07/18/24 05:50: POC Glucose 79 ROS Constitutional Constitutional: Denies chills, fatigue, fever(s), poor appetite or weakness Eyes Eyes: Denies blurry vision, change in vision, seeing flashes or spots in vision ENT HEENT: Denies dizziness, headache(s), loss taste/smell or sore throat Cardiovascular Cardiovascular: Denies chest pain, dizziness, dyspnea, irregular heart rhythm, palpitations or rapid heart rate Respiratory/Chest Respiratory/Chest: Denies chest tightness, cough, dyspnea or breast pain Gastrointestinal Gastrointestinal: Denies abdominal pain, constipation or vomiting Genitourinary Genitourinary: Denies dysuria or flank pain Musculoskeletal Musculoskeletal: Denies difficulty walking, joint pain, limited range of motion or numbness Neurologic Neurologic: Denies abnormal movements, abnormal speech, dizziness, numbness, seizure-like activity or syncope Psychiatric Psychiatric: Denies anxiety, behavioral changes, change in appetite, confusion, depression or suicidal thoughts Physical Exam Const alert, oriented x3 and no apparent distress General Appearance: cooperative and comfortable Resp normal respiratory effort Cardio regular rate GI normal to inspection, nondistended, normoactive bowel sounds GI Narrative: uterus is firm below umbilicus Palpation: soft Back/Spine no CVA tenderness and thoraco-lumbar ROM normal Extremity normal to inspection, no clubbing, cyanosis or edema, no calf tenderness and no pedal edema Psych mental status grossly normal, thought process normal, cooperative, affect normal, speech normal, activity/motor behavior normal, denies homicidal ideation and denies suicidal ideation Assessment & Plan (1) Cough: (2) Vaginal delivery: COMMENT: SM IOL GDM girl (3) Gestational diabetes: COMMENT: growth at 36 weeks-60%. 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 reviewed and well controlled. discussed always checking fasting but may reduce checks after meals if controlled. (4) History of miscarriage, currently : COMMENT: Between viable 's (5) Supervision of high-risk : QUALIFIERS: Trimester: third trimester Qualified Code(s): O09.93 - Supervision of high risk , unspecified, third trimester COMMENT: PRR, , AGUS 07/22/24, surprise PC Kae, Mac Hero. (6) : QUALIFIERS: Weeks of gestation: 38 weeks Qualified Code(s): Z3A.38 - 38 weeks gestation of COMMENT: GBS neg. elects NIPT testing No gender, low risk. nl anatomy. PLAN: Plan s/p PPD # 1 1. routine post delivery care 2. breast feeding- support given 3. rh positive 4. rubella immune 5. cxr now and if normal dc to home with z-david
--- NOTE | 2024-07-18 09:34 | NURSING ---
0930 pt off the floor to obtain a chest xray, due to her persistent cough.
== END 2024-07-18 19:40 | disposition home or self-care (01) | DRG 807 ==
PROVIDERS: Admitting Provider Obstetrics & Gynecology; PCP Internal Medicine; Visit Provider Obstetrics & Gynecology
DX: O24.420 Gestational diabetes mellitus in childbirth, diet controlled (principal); Z37.0 Single live birth; N96 Recurrent pregnancy loss; Z3A.38 38 weeks gestation of pregnancy; Z80.3 Family history of malignant neoplasm of breast; O69.1XX0 Labor and delivery complicated by cord around neck, with compression, not applicable or unspecified; O99.893 Other specified diseases and conditions complicating puerperium
CPT/HCPCS: 59025; 59050; 71046; 82962; 85025; 86780; 86850; 86900; 86901

== ENCOUNTER → 2025-02-04 | Outpatient (CLI) | payer OTHER, SELFPAY ==
[2025-02-04 12:31] LABS: Hematocrit 43.1 % (37-47); Hemoglobin 14.4 g/dL (12.0-15.0); Immature Granulocytes Count 0.010 X10^3/uL (0.0-0.0); Mean Corp Hgb Conc 33.4 g/dL (32-36); Mean Corpuscular Volume 92.5 fL (81-99); Mean Platelet Vol. 10.3 fl (6.2-12.0); NRBC Flagged by Analyzer 0 % (0-5); Platelet Count 289 K/mm3 (150-450); RBC Distribution Width CV 12.1 % (11.6-14.6); RBC Distribution Width SD 41.1 fl (35.1-43.9); Red Blood Count 4.66 M/mm3 (4.2-5.4); White Blood Count 5.4 K/mm3 (4.4-11.0)
[2025-02-04 13:06] LABS: AST(SGOT) 23 U/L (<=31); Alanine Aminotransfer ALT/SGPT 13 U/L (<=34); Albumin, Serum 4.3 g/dL (3.5-5.0); Alkaline Phosphatase 69 U/L (35-104); Anion Gap 13 (5-15); BUN 12 mg/dL (4-19); BUN/Creat Ratio 16.2 RATIO (10-20); Calcium,Total 9.0 mg/dL (7.6-11.0); Carbon Dioxide 21.0 mmol/L (21.0-32.0); Chloride 105 mmol/L (98-108); Cholesterol 157 mg/dL (<=200); Globulin 3.2 g/dL (2.2-4.2); Glucose 86 mg/dL (70-99); Low Density Lipoprotein Calc. 91 mg/dL; Potassium 4.2 mmol/L (3.3-5.1); Triglycerides 37 mg/dL; Very Low Density Lipoprotein 7 mg/dL (5-40); cholesterol:hdl ratio screen 2.66
== END | disposition home or self-care (01) ==
LOC: BIMLAB 09:19
PROVIDERS: PCP Internal Medicine; Visit Provider Internal Medicine
DX: Z00.00 Encounter for general adult medical examination without abnormal findings (principal)
CPT/HCPCS: 36415; 80053; 80061; 85025